=== PATIENT | male | born 1955 | race Caucasian/White ===

== ENCOUNTER 2017-07-24 23:33 | Inpatient (IN) | payer MEDICARE ==
[~2017-07-24] VITALS: Ht 182.9 cm; Wt 145.5 kg
[~2017-07-24 23:33] MED LIST: AMBI10TA PO; AMLO5TAB2 PO; ATEN50TA PO; CYCL1TAB29 PO; ROSU10 PO; SERT-132 PO; WARF-23 PO
[2017-07-24 23:38] VITALS: BP 207/123; PULSE 91; RESP 22; TEMP 99.7; O2SAT 98
[2017-07-24] MEDS ORDERED: GLIP5 PO (23:58)
[2017-07-24] MEDS ORDERED: WARF-21 PO (23:58)
[2017-07-24] MEDS ORDERED: POLY17S PO (23:58)
[2017-07-24] MEDS ORDERED: METF500T PO (23:58)
[2017-07-24] MEDS ORDERED: OMEP40CA2 PO (23:58)
[2017-07-24] MEDS ORDERED: ALBU0.08 NEB (23:58)
[2017-07-24] MEDS ORDERED: LISI10TA3 PO (23:58)
[2017-07-24] MEDS ORDERED: FURO20TA PO (23:58)
[2017-07-24] MEDS ORDERED: CETI10CH CHEW (23:58)
[2017-07-24] MEDS ORDERED: ATOR20TA15 PO (23:58)
[2017-07-24] MEDS ORDERED: WARF-23 PO (23:58)
[2017-07-25] VITALS (8 sets, daily range): BP systolic 126–175; BP diastolic 61–85; PULSE 65–91; RESP 17–20; TEMP 96.3–100.7; O2SAT 93–98
--- NOTE | 2017-07-25 00:19 | PD ---
HPI Chief Complaint: Complaint Time Seen by Provider: 23:43 Travel History International Travel<30 days: No Contact w/Intl Traveler<30days: No History of Present Illness HPI The patient is a 61 year old male who presents to the [facility] emergency department with a history of noticing blood in his urine prior to arrival. He has a history of kidney stones. He has not required any treatment in the past as they "were not bothering him". He has been seen by [facility] in the past. Today when he began to have the hematuria he also developed a lower abdominal pain in the suprapubic area. He has some constipation however he has used a stool softener today and moved his bowels in small amount. His last bowel movement that was normal was two days ago. He began to have left flank pain yesterday. He had a fever of 99.7 earlier today. He reports that he's had dysuria with urinary frequency and urgency since yesterday. On review of systems, he denies having any worsening cough or congestion, neck pain, chest pain, vomiting, diarrhea, or new neurologic symptoms. He has chronic dyspnea on exertion that is been present for the last 6 months. His pcp is Dr. Aguiar. 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 Hx Anticoagulant Therapy: Yes (Warfarin) Arthritis: Yes Anxiety: Yes Cardiovascular Problems: Yes (HTN ) High Cholesterol: Yes Cerebrovascular Accident: Yes (5 Strokes, 3 TIA, Aneurysm ) Coronary Artery Disease: Yes Diabetes: Yes (Metformin) Patient Takes Glucophage: Yes Diminished Hearing: No Hypertension: Yes Immunizations Current: Yes Tetanus Vaccination: Unknown Influenza Vaccination: Yes Past Surgical History Narrative Surgical The patient's past surgical history is significant for intracranial hemorrhage at 20 years of age status post aneurysmal clipping, arthroscopic left knee surgery. Social History Alcohol Use: No Tobacco Use: No (quit at 40 years of age) Substance Use: No Allergies-Medications (Allergen,Severity, Reaction): Coded Allergies: erythromycin base (Unverified Allergy, Intermediate, 07/17/17) purple blotches Reported Meds & Prescriptions Reported Meds & Active Scripts Active Reported Cetirizine (Cetirizine HCl) 10 Mg Chew 10 Mg CHEW DAILY Albuterol Neb (Albuterol Sulfate) 2.5 Mg/3 Ml Neb 2.5 Mg NEB Q6HR NEB PRN Polyethylene Glycol 3350 Powder (Polyethylene Glycol) 17 Gram Pow 17 Gm PO DAILY Omeprazole 40 Mg Cap 40 Mg PO DAILY Metformin (Metformin HCl) 500 Mg Tab 500 Mg PO BIDPC With meals Lisinopril 10 Mg Tab 10 Mg PO DAILY Glucotrol (Glipizide) 5 Mg Tab 5 Mg PO DAILY Take 30 minutes before a meal Furosemide 20 Mg Tab 20 Mg PO DAILY Atorvastatin (Atorvastatin Calcium) 20 Mg Tab 20 Mg PO HS Warfarin 5 Mg Tab 5 Mg PO ZTUWETHFRSA Warfarin 7.5 Mg Tab 7.5 Mg PO ZSUMO Amlodipine (Amlodipine Besylate) 5 Mg Tab 5 Mg PO DAILY Flexeril (Cyclobenzaprine HCl) 10 Mg Tab 10 Mg PO TID PRN Sertraline (Sertraline HCl) 50 Mg Tab 50 Mg PO DAILY Atenolol 50 Mg Tab 50 Mg PO DAILY Ambien (Zolpidem Tartrate) 10 Mg Tab 10 Mg PO HS PRN Review of Systems Except as stated in HPI: all other systems reviewed are Neg General / Constitutional: No: Fever Eyes: No: Visual changes HENT: No: Headaches Cardiovascular: Positive: Dyspnea on exertion (chronic for the last 6 months), No: Chest Pain or Discomfort Respiratory: No: Shortness of Breath Gastrointestinal: Positive: Nausea, Abdominal Pain, Changes in Bowel Habits, No : Vomiting, Diarrhea, Hematemesis, Hematochezia, Indigestion, Loss of Appetite Genitourinary: Positive: Urgency, Frequency, Dysuria, Hematuria, Flank Pain Musculoskeletal: No: Pain Skin: No Rash Neurologic: No: Weakness, Focal Abnormalities, Change in Mentation, Slurred Speech, Sensory Disturbance Psychiatric: No: Depression Endocrine: No: Polydipsia Hematologic/Lymphatic: No: Easy Bruising Physical Exam Narrative General: The patient is a well-developed well-nourished male in no acute distress. Head and Neck exam: Head is normocephalic atraumatic. Eyes: EOMI, pupils are equal round and reactive to light. Nose: Midline septum with pink mucous membranes Mouth: Dentition unremarkable. Moist mucus membranes. Posterior oropharynx is not erythematous. No tonsillar hypertrophy. Uvula midline. Airway patent. Neck: No palpable lymphadenopathy. No nuchal rigidity. No thyromegaly. Cardiovascular: Regular rate and rhythm without murmurs, gallops, or rubs. Lungs: Clear to auscultation bilaterally. No wheezes, rhonchi, or rales. Abdomen: Soft, with tenderness on palpation of the suprapubic area and left lower quadrant of the abdomen, no other tenderness on palpation of the other quadrants of the abdomen. No guarding, rebound, or rigidity. Normal bowel sounds are audible. No tenderness on palpation of McBurney's point. Extremities: No clubbing, cyanosis. The patient has chronic lymphedema of bilateral lower extremities worse on the left leg compared to the right. 2+ pulses in all 4 extremities. Back: No spinous process tenderness to palpation. Left CVA tenderness to palpation. Neurologic Exam: The patient is at his baseline for his usual neurologic exam he has a history of left upper extremity paralysis, left lower extremity paresis related to a prior stroke. The Patient is alert and oriented. The patient has no evidence of facial asymmetry. Skin Exam: No rash noted. Intact skin that is warm and dry. Data Data Last Documented VS Vital Signs Date Time Temp Pulse Resp B/P (MAP) Pulse Ox O2 Delivery O2 Flow Rate FiO2 07/25/17 02:48 98.5 91 18 153/67 (95) 98 Room Air Orders Orders Electrocardiogram (07/25/17 00:09) Complete Blood Count With Diff (07/25/17 00:09) Comprehensive Metabolic Panel (07/25/17 00:09) Creatine Kinase (Cpk) (07/25/17 00:09) Ckmb (Isoenzyme) Profile (07/25/17 00:09) Troponin I (07/25/17 00:09) B-Type Natriuretic Peptide (07/25/17 00:09) Prothrombin Time / Inr (Pt) (07/25/17 00:09) Act Partial Throm Time (Ptt) (07/25/17 00:09) Lipase (07/25/17 00:09) Urinalysis - C+S If Indicated (07/25/17 00:09) Magnesium (Mg) (07/25/17 00:09) Chest, Single Ap (07/25/17 00:09) Iv Access Insert/Monitor (07/25/17 00:09) Ecg Monitoring (07/25/17 00:09) Oximetry (07/25/17 00:09) Urine Culture (07/25/17 00:00) CKMB (07/25/17 00:15) CKMB% (07/25/17 00:15) Ct Abd/Pel W/O Iv Contrast (07/25/17 02:01) Lactic Acid Sepsis Protocol (07/25/17 02:20) Blood Culture (07/25/17 02:20) Piperacil-Tazo 3.375 Gm Premix (Zosyn 3. (07/25/17 02:30) Vancomycin Inj (Vancomycin Inj) (07/25/17 02:30) Admit Order (Ed Use Only) (07/25/17 03:20) Labs Laboratory Tests Test 07/25/17 00:00 07/25/17 00:15 07/25/17 02:40 Urine Color DARK-RED Urine Turbidity CLOUDY Urine pH 6.5 Urine Specific [place] 1.021 Urine Protein 300 mg/dL Urine Glucose (UA) TRACE mg/dL Urine Ketones 10 mg/dL Urine Occult Blood LARGE Urine Nitrite NEG Urine Bilirubin NEG Urine Urobilinogen LESS THAN 2.0 MG/DL Urine Leukocyte Esterase LARGE Urine RBC /hpf Urine WBC /hpf Urine Amorphous Sediment RARE Microscopic Urinalysis Comment CULTURE INDICATED White Blood Count 13.0 TH/MM3 Red Blood Count 5.07 MIL/MM3 Hemoglobin 14.2 GM/DL Hematocrit 43.6 % Mean Corpuscular Volume 86.0 FL Mean Corpuscular Hemoglobin 28.0 PG Mean Corpuscular Hemoglobin Concent 32.6 % Red Cell Distribution Width 15.6 % Platelet Count 251 TH/MM3 Mean Platelet Volume 8.5 FL Neutrophils (%) (Auto) 80.6 % Lymphocytes (%) (Auto) 9.3 % Monocytes (%) (Auto) 9.4 % Eosinophils (%) (Auto) 0.4 % Basophils (%) (Auto) 0.3 % Neutrophils # (Auto) 10.5 TH/MM3 Lymphocytes # (Auto) 1.2 TH/MM3 Monocytes # (Auto) 1.2 TH/MM3 Eosinophils # (Auto) 0.1 TH/MM3 Basophils # (Auto) 0.0 TH/MM3 CBC Comment DIFF FINAL Differential Comment Prothrombin Time 14.0 SEC Prothromb Time International Ratio 1.3 RATIO Activated Partial Thromboplast Time 33.6 SEC Blood Urea Nitrogen 12 MG/DL Creatinine 0.97 MG/DL Random Glucose 159 MG/DL Total Protein 7.5 GM/DL Albumin 2.9 GM/DL Calcium Level 8.3 MG/DL Magnesium Level 1.6 MG/DL Alkaline Phosphatase 68 U/L Aspartate Amino Transf (AST/SGOT) 16 U/L Alanine Aminotransferase (ALT/SGPT) 28 U/L Total Bilirubin 0.4 MG/DL Sodium Level 138 MEQ/L Potassium Level 3.4 MEQ/L Chloride Level 102 MEQ/L Carbon Dioxide Level 27.7 MEQ/L Anion Gap 8 MEQ/L Estimat Glomerular Filtration Rate 79 ML/MIN Total Creatine Kinase 207 U/L Creatine Kinase MB 1.7 NG/ML Troponin I LESS THAN 0.02 NG/ML B-Type Natriuretic Peptide 28 PG/ML Lipase 113 U/L Lactic Acid Level 1.2 mmol/L MDM Medical Decision Making Medical Screen Exam Complete: Yes Emergency Medical Condition: Yes Medical Record Reviewed: Yes Interpretation(s) Last Impressions Abdomen/Pelvis CT 07/25/17200 Signed Impressions: Service Date/Time: Tuesday, July 25, 2017 02:10 - CONCLUSION: 1. Stranding of fat around the bladder and prostate. Differential diagnosis includes cystitis and prostatitis. 2. Numerous left renal calculi as above measuring up to about 1 cm at multiple locations in the left renal pelvis. Mild dilatation of the left ureter without evidence for ureteral or bladder calculus. No right-sided renal calculi. 3. Fatty liver. Alex Mullen MD Chest X-Ray 07/25/17 0009 Signed Impressions: Service Date/Time: Tuesday, July 25, 2017 00:12 - CONCLUSION: No acute disease. No significant change has occurred. Alex Mullen MD Differential Diagnosis Diverticulitis, versus kidney stone, versus hemorrhagic cystitis Narrative Course During the course of the patients emergency department visit, the patients history, examination, and differential diagnosis were reviewed with the patient. The patient had IV access obtained and blood work sent for analysis. The patients laboratory studies were reviewed and remarkable for a white count of 13,000, hemoglobin 14.2, platelets 251 with 80.6 neutrophils, 9.4 monocytes, CMP is remarkable for potassium 3.4, glucose 159, calcium 8.3, CPK 207, troponin I less than 0.02, BNP 28, lipase 113. PT 14, PTT 33.6, urinalysis reveals 300 protein, 10 ketones, large occult blood, large leukocyte Estrace, innumerable RBCs and WBCs, Culture indicated. Radiology studies were reviewed and remarkable for a chest x-ray that shows no acute abnormality. A CT scan of the abdomen and pelvis that shows stranding around the prostate and bladder suspicious for prostatitis. Numerous left renal calculi are noted measuring up to 1 cm at multiple locations of the left renal pelvis, mild dilatation of the left ureter without evidence of ureteral or bladder calculi, no right sided renal calculi, fatty liver is noted. The patient had blood cultures ordered. A lactic acid was ordered. The patient was started on Zosyn 3.375 g IV, vancomycin 1 g IV. Given the patient' s peripheral edema and concern about the possibility of fluid overload, the patient was judiciously hydrated. The patient was given normal saline 1 L IV fluid bolus after his BMP came back within normal limits. The patient was given morphine for pain, Zofran for nausea. The patient will be admitted to the hospital for continued evaluation and treatment. The patients results were discussed with the patient, including the plan of care. I explained that further testing and/ or monitoring is indicated based on the patients history, examination, and/ or laboratory findings. Therefore, I recommended admission for additional evaluation. The patient expressed understanding and was agreeable with this plan. The patient was admitted to the hospital in guarded condition and sent to a bed under the care of the [facility] service. Sepsis Criteria SIRS Criteria (2 or more): Heart rate over 90, WBC > 82328, < 4000 or > 10% bands Sepsis Criteria (SIRS+source): Infect source susp/known Criteria Outcome: Meets SIRS criteria, Meets sepsis criteria Physician Communication Physician Communication The patient's case is discussed with Dr. Tucker who did agree to admit the patient for further evaluation and treatment at this time. Diagnosis Primary Impression: Hemorrhagic cystitis Additional Impressions: Prostatitis Qualified Codes: N41.0 - Acute prostatitis Kidney stones Admitting Information Admitting Physician Requests: Admit Linda Diez MD Jul 25, 2017 00:19
--- NOTE | 2017-07-25 00:52 | RADRPT ---
EXAM DATE/TIME: 07/25/2017 00:12 [facility] COMPARISON: CHEST SINGLE AP, May 07, 2017, 22:11. INDICATIONS : Shortness of breath. MEDICAL HISTORY : Deep venous thrombosis. Hypercholesterolemia. Hypertension. Cerebrovascular accident. Diabetes SURGICAL HISTORY : None. ENCOUNTER: Initial ACUITY: 1 day PAIN SCORE: 0/10 LOCATION: Bilateral chest FINDINGS: A single view of the chest demonstrates the lungs to be symmetrically aerated without evidence of mas s, infiltrate or effusion. The cardiomediastinal contours are unremarkable. Osseous structures are intact. CONCLUSION: No acute disease. No significant change has occurred. Alex Mullen MD on July 25, 2017 at 0:50 Board Certified Radiologist. This report was verified electronically.
[2017-07-25 01:01] LABS: BLOOD, URINE LARGE (NEG); COMMENT (UR) CULTURE INDICATED; CULTURE IF INDICATED CULTURE INDICATED; GLUCOSE,URINE TRACE mg/dL (NEG); KETONE, URINE 10 mg/dL (NEG); NITRITE,URINE NEG (NEG); PH, URINE 6.5 (5.0-8.5)
[2017-07-25 01:01] LABS: AUTOMATED NEUTROPHIL # 10.5 TH/MM3 (1.8-7.7); BASOPHIL % 0.3 % (0.0-2.0); EOSINOPHIL # 0.1 TH/MM3 (0-0.4); EOSINOPHIL % 0.4 % (0.0-4.0); HEMATOCRIT 43.6 % (39.0-51.0); HEMO FLAGS DIFF FINAL; LYMPH % 9.3 % (9.0-44.0); LYMPHOCYTE # 1.2 TH/MM3 (1.0-4.8); MEAN CORPUSCULAR HGB CONC 32.6 % (32.0-36.0); MONO % 9.4 % (0.0-8.0); NEUT % 80.6 % (16.0-70.0); PLATELET COUNT 251 TH/MM3 (150-450); RED BLOOD COUNT 5.07 MIL/MM3 (4.50-5.90); RED CELL DISTRIBUTION WIDTH 15.6 % (11.6-17.2)
[2017-07-25 01:02] LABS: URINE COLOR DARK-RED (YELLW/STRAW)
[2017-07-25 01:03] LABS: ANION GAP 8 MEQ/L (5-15); AST (GOT) 16 U/L (15-37); BICARBONATE 27.7 MEQ/L (21.0-32.0); BLOOD UREA NITROGEN 12 MG/DL (7-18); CHLORIDE 102 MEQ/L (98-107); GLOMERULAR FILTRATION RATE 79 ML/MIN (>89); MAGNESIUM 1.6 MG/DL (1.5-2.5); POTASSIUM 3.4 MEQ/L (3.5-5.1); SODIUM (NA) 138 MEQ/L (136-145)
[2017-07-25 01:08] LABS: ALKALINE PHOSPHATASE 68 U/L (45-117); ALT (GPT) 28 U/L (12-78); CREATINE KINASE 207 U/L (39-308); TOTAL BILIRUBIN ADULT 0.4 MG/DL (0.2-1.0)
[2017-07-25 01:11] LABS: APTT (PATIENT) 33.6 SEC (24.3-30.1); INTERNATIONAL NORMALIZED RATIO 1.3 RATIO
[2017-07-25 01:20] LABS: CKMB 1.7 NG/ML (0.5-3.6)
[2017-07-25] MEDS ORDERED: PIPERACIL-TAZO 3.375 GM PREMIX 50 ML IV ONE (02:30)
[2017-07-25] MEDS ORDERED: VANCOMYCIN INJ 1,000 MG in SODIUM CHLOR 0.9% 250 ML INJ 250 ML IV ONE (02:30)
--- NOTE | 2017-07-25 02:40 | RADRPT ---
EXAM DATE/TIME: 07/25/2017 02:10 [facility] COMPARISON: No previous studies available for comparison. INDICATIONS : Blood in urine and suprapubic pain, evaluate for renal stone ORAL CONTRAST: No oral contrast ingested. RADIATION DOSE: 33.80 CTDIvol (mGy) ; Patient body habitus MEDICAL HISTORY : Cerebrovascular disease. Hypertension. Renal calculi.diabetes SURGICAL HISTORY : None. ENCOUNTER: Initial ACUITY: 1 day PAIN SCALE: 4/10 LOCATION: suprapubic TECHNIQUE: Volumetric scanning of the abdomen and pelvis was performed. Using automated exposure control and ad justment of the mA and/or kV according to patient size, radiation dose was kept as low as reasonably achievable to obtain optimal diagnostic quality images. DICOM format image data is available electro nically for review and comparison. FINDINGS: The visualized lung bases are clear. Fatty liver. The acute findings in the spleen, adrenals, right k idney or pancreas. No calcified gallstones There are numerous left-sided renal calculi. The 3 largest calculi on the left lateral measure about 10 mm in diameter is seen in the upper left renal pelvis and the third in the lower left renal pelvis . Numerous additional subcentimeter calculi present in the left kidney. The left ureter is minimally dilated but no ureteral calculi are seen. There is stranding of the fat around the bladder suggesting a cystitis. No bladder calculi. There is also some stranding around the prostate. No pelvic mass or free fluid. CONCLUSION: 1. Stranding of fat around the bladder and prostate. Differential diagnosis includes cystitis and pro statitis. 2. Numerous left renal calculi as above measuring up to about 1 cm at multiple locations in the left renal pelvis. Mild dilatation of the left ureter without evidence for ureteral or bladder calculus. N o right-sided renal calculi. 3. Fatty liver. Alex Mullen MD on July 25, 2017 at 2:33 Board Certified Radiologist. This report was verified electronically.
[2017-07-25] MEDS ORDERED: SODIUM CHLOR 0.9% 1000 ML INJ 1,000 ML IV SCH (03:29)
[2017-07-25] MEDS ORDERED: NALOXONE HCL 0.4 MG/ML AMP IV PUSH PRN (03:30)
[2017-07-25] MEDS ORDERED: SODIUM CHLORIDE 0.9% FLUSH 10 ML FLUSH IV FLUSH PRN (03:30)
[2017-07-25] MEDS ORDERED: SODIUM CHLOR 0.9% 1000 ML INJ 1,000 ML IV ONE (03:30)
[2017-07-25] MEDS ORDERED: MORPHINE SULFATE 4 MG/ML INJ IV PUSH ONE (03:45)
[2017-07-25] MEDS ORDERED: ONDANSETRON HCL 4 MG/2 ML VIAL IV PUSH ONE (03:45)
--- NOTE | 2017-07-25 03:46 | HHI.HP ---
HPI Service [facility] Primary Care Physician Unknown Admission Diagnosis hemorrhagic cystitis, prostatitis, sepsis criteria Diagnoses: Travel History International Travel<30 Days: No Contact w/Intl Traveler <30 Da: No History of Present Illness History from patient, ER physician communication, and review of medical records. Patient reported that for the past 2 days, he has been having this pain in the lower abdomen and pain on urination with burning sensation. He stated he was also having some pain in his lower back. He then noted that those blood in his urine today. Reports of low-grade fever of 99.7 at home. Denies any nausea or vomiting. Reports he has been having night sweats but this has been going on for a long time. He was also having shortness of breath but again this has been going on for the past several months. He did report of some constipation today. Next and apart from that, denies any black color stool or red color stool. Patient is on Coumadin at home. His INR is 1.3 today. Patient reports a prior history of CVA with residual left-sided weakness. He states that his left lower extremity has been swelling chronically as well. He reports he has had ultrasounds of his left lower extremity a few months ago and there was no evidence of DVT. He does not particularly remember whether he had any CT scan for the chest or echocardiogram to evaluate for his shortness of breath. Apart from the above, patient denies any recent fever/nausea/vomiting/diarrhea. Denies any blood in his stool. Noted blood in his urine. Denies any chest pain/palpitations. Did have shortness of breath. No syncopal episodes. No dizziness. Review of Systems Except as stated in HPI: all other systems reviewed are Neg Past Family Social History Past Medical History htn dm cva- residual left sided weakness copd- used to smoke for about 30yrs, quit 15yrs ago sleep apnea- on cpap at night brain aneurysm clipping when he was 20yrs old Past Surgical History brain aneurysm clipping when he was 20yrs old- NOT mri compatible left knee arthroscopic sx Allergies: Coded Allergies: erythromycin base (Unverified Allergy, Intermediate, 07/17/17) purple blotches Family History mother- copd father- lung problems as well, copd, skin cancers, hx of stroke in family dm in father's side of family Social History used to smoke for 30yrs, quit 15yrs ago no etoh or drugs Physical Exam Vital Signs Vital Signs Date Time Temp Pulse Resp B/P (MAP) Pulse Ox O2 Delivery O2 Flow Rate FiO2 07/25/17 02:48 98.5 91 18 153/67 (95) 98 Room Air 07/25/17 00:36 90 20 175/71 (105) 98 Room Air 07/24/17 23:38 99.7 91 22 207/123 (151) 98 Physical Exam GENERAL: This is a well-nourished, well-developed patient, in no apparent distress. Obese gentleman SKIN: No rashes, ecchymoses or lesions. Cool and dry. HEAD: Atraumatic. Normocephalic. No temporal or scalp tenderness. EYES: No scleral icterus. No injection or drainage. ENT: Nose without bleeding, purulent drainage or septal hematoma.Airway patent. NECK: Trachea midline. No JVD CARDIOVASCULAR: Regular rate and rhythm without murmurs, gallops, or rubs. RESPIRATORY: Clear to auscultation. Breath sounds equal bilaterally. No wheezes , rales, or rhonchi. GASTROINTESTINAL: Abdomen soft, non-tender, nondistended. No guarding. MUSCULOSKELETAL: Extremities without clubbing, cyanosis. No calf tenderness. Left lower extremity significantly bigger than the right. NEUROLOGICAL: Awake and alert. Facial asymmetry with left facial droop. Left upper extremity 0 out of 5. Left lower extremity about 3 out of 5. Normal speech. Laboratory Laboratory Tests Test 07/25/17 00:00 07/25/17 00:15 07/25/17 02:40 Urine Color DARK-RED Urine Turbidity CLOUDY Urine pH 6.5 Urine Specific Bentley 1.021 Urine Protein 300 Urine Glucose (UA) TRACE Urine Ketones 10 Urine Occult Blood LARGE Urine Nitrite NEG Urine Bilirubin NEG Urine Urobilinogen LESS THAN 2.0 Urine Leukocyte Esterase LARGE Urine RBC Urine WBC Urine Amorphous Sediment RARE Microscopic Urinalysis Comment CULTURE INDICATED White Blood Count 13.0 Red Blood Count 5.07 Hemoglobin 14.2 Hematocrit 43.6 Mean Corpuscular Volume 86.0 Mean Corpuscular Hemoglobin 28.0 Mean Corpuscular Hemoglobin Concent 32.6 Red Cell Distribution Width 15.6 Platelet Count 251 Mean Platelet Volume 8.5 Neutrophils (%) (Auto) 80.6 Lymphocytes (%) (Auto) 9.3 Monocytes (%) (Auto) 9.4 Eosinophils (%) (Auto) 0.4 Basophils (%) (Auto) 0.3 Neutrophils # (Auto) 10.5 Lymphocytes # (Auto) 1.2 Monocytes # (Auto) 1.2 Eosinophils # (Auto) 0.1 Basophils # (Auto) 0.0 CBC Comment DIFF FINAL Differential Comment Prothrombin Time 14.0 Prothromb Time International Ratio 1.3 Activated Partial Thromboplast Time 33.6 Blood Urea Nitrogen 12 Creatinine 0.97 Random Glucose 159 Total Protein 7.5 Albumin 2.9 Calcium Level 8.3 Magnesium Level 1.6 Alkaline Phosphatase 68 Aspartate Amino Transf (AST/SGOT) 16 Alanine Aminotransferase (ALT/SGPT) 28 Total Bilirubin 0.4 Sodium Level 138 Potassium Level 3.4 Chloride Level 102 Carbon Dioxide Level 27.7 Anion Gap 8 Estimat Glomerular Filtration Rate 79 Total Creatine Kinase 207 Creatine Kinase MB 1.7 Troponin I LESS THAN 0.02 B-Type Natriuretic Peptide 28 Lipase 113 Lactic Acid Level 1.2 Date/Time Source Procedure Growth Status 07/25/17 02:45 Blood Peripheral Aerobic Blood Culture Pending Received 07/25/17 02:45 Blood Peripheral Anaerobic Blood Culture Pending Received 07/25/17 00:00 Urine Random Urine Urine Culture Pending Worksheet Result Diagram: 07/25/17 0015 07/25/17 0015 Imaging Last 48 hours Impressions Abdomen/Pelvis CT 07/25/17 0201 Signed Impressions: Service Date/Time: Tuesday, July 25, 2017 02:10 - CONCLUSION: 1. Stranding of fat around the bladder and prostate. Differential diagnosis includes cystitis and prostatitis. 2. Numerous left renal calculi as above measuring up to about 1 cm at multiple locations in the left renal pelvis. Mild dilatation of the left ureter without evidence for ureteral or bladder calculus. No right-sided renal calculi. 3. Fatty liver. Alex Mullen MD Chest X-Ray 07/25/17 0009 Signed Impressions: Service Date/Time: Tuesday, July 25, 2017 00:12 - CONCLUSION: No acute disease. No significant change has occurred. Alex Mullen MD Caprini VTE Risk Assessment Caprini VTE Risk Assessment: Mod/High Risk (score >= 2) Caprini Risk Assessment Model Point Value = 1 Point Value = 2 Point Value = 3 Point Value = 5 Age 41-60 Minor surgery BMI > 25 kg/m2 Swollen legs Varicose veins or History of unexplained or recurrent spontaneous Oral contraceptives or hormone replacement Sepsis (< 1 month) Serious lung disease, including pneumonia (< 1 month) Abnormal pulmonary function Acute myocardial infarction Congestive heart failure (< 1 month) History of inflammatory bowel disease Medical patient at bed rest Age 61-74 Arthroscopic surgery Major open surgery (> 45 min) Laparoscopic surgery (> 45 min) Malignancy Confined to bed (> 72 hours) Immobilizing plaster cast Central venous access Age >= 75 History of VTE Family history of VTE Factor V Leiden Prothrombin [id number] Lupus anticoagulant Anticardiolipin antibodies Elevated serum homocysteine Heparin-induced thrombocytopenia Other congenital or acquired thrombophilia Stroke (< 1 month) Elective arthroplasty Hip, pelvis, or leg fracture Acute spinal cord injury (< 1 month) Prophylaxis Regimen Total Risk Factor Score Risk Level Prophylaxis Regimen 0-1 Low Early ambulation 2 Moderate Order ONE of the following: *Sequential Compression Device (SCD) *Heparin 5000 units SQ BID 3-4 Higher Order ONE of the following medications: *Heparin 5000 units SQ TID *Enoxaparin/Lovenox 40 mg SQ daily (WT < 150 kg, CrCl > 30 mL/min) *Enoxaparin/Lovenox 30 mg SQ daily (WT < 150 kg, CrCl > 10-29 mL/min) *Enoxaparin/Lovenox 30 mg SQ BID (WT < 150 kg, CrCl > 30 mL/min) AND/OR *Sequential Compression Device (SCD) 5 or more Highest Order ONE of the following medications: *Heparin 5000 units SQ TID (Preferred with Epidurals) *Enoxaparin/Lovenox 40 mg SQ daily (WT < 150 kg, CrCl > 30 mL/min) *Enoxaparin/Lovenox 30 mg SQ daily (WT < 150 kg, CrCl > 10-29 mL/min) *Enoxaparin/Lovenox 30 mg SQ BID (WT < 150 kg, CrCl > 30 mL/min) AND *Sequential Compression Device (SCD) Assessment and Plan Assessment and Plan Impression: Hemorrhagic cystitis Hematuria Non-obstructive renal stones Leukocytosis with left shift Mild hypokalemia Plan: At present, patient has a condom catheter. he has been draining urine with hematuria. So far, there is no evidence of blood clot causing obstructive uropathy. We'll need to carefully monitor for this. If needed, patient would need a Ferguson catheter with frequent flushing/possibly CBI. Would also consult urology for possible further intervention. Hold Coumadin and other anticoagulants. Repeat hemoglobin hematocrit in a.m. Patient was given vancomycin and Zosyn in ER for cystitis. For now, I would use ciprofloxacin 400 mg IV every 12 hours. We'll monitor for clinical improvement. We'll follow urine culture results. Replace potassium 40 mEq by mouth. Hold long-acting insulin and oral hypoglycemics. We'll monitor fingersticks and cover with sliding scale coverage. C Pap at night at home setting. Nebs when necessary. DVT prophylaxis- with SCD if ultrasound of the lower extremities is negative for acute DVT. Will obtain ultrasound of the lower extremities. At present, patient cannot be anticoagulated due to hematuria. Discussed Condition With Patient's, ER physician, patient's nurse Physician Certification 2 Midnight Certification Type: Admission for Inpatient Services Order for Inpatient Services The services are ordered in accordance with Medicare regulations or non- Medicare payer requirements, as applicable. In the case of services not specified as inpatient-only, they are appropriately provided as inpatient services in accordance with the 2-midnight benchmark. Estimated LOS (days): 3 days is the estimated time the patient will need to remain in the hospital, assuming treatment plan goals are met and no additional complications. Post-Hospital Plan: Home Sudhakar Tucker MD Jul 25, 2017 03:46
[2017-07-25] MEDS ORDERED: ONDANSETRON HCL 4 MG/2 ML VIAL IV PUSH PRN (06:00)
[2017-07-25] MEDS: MORPHINE SULFATE 4 MG/ML INJ IV PUSH PRN ×5 (07:12→18:39)
[2017-07-25] MEDS ORDERED: RESP: ALBUTEROL 2.5 MG/3 ML NEB (PRN) NEB (07:15)
[2017-07-25] MEDS ORDERED: CETIRIZINE HCL 10 MG TAB PO PRN (07:15)
[2017-07-25] MEDS ORDERED: GLUCAGON 1 MG/ML VIAL OTHER PRN (07:30)
[2017-07-25] MEDS ORDERED: DEXTROSE 50% IN WATER 50 ML VIAL(D50) IV PUSH PRN (07:30)
[2017-07-25] MEDS ORDERED: POTASSIUM CHLORIDE 20 MEQ CONTROLLED RELEASE TAB PO ONE (07:30)
--- NOTE | 2017-07-25 08:44 | MB ---
cc: PATRICK ARIZMENDI MD DATE OF CONSULTATION: 07/25/2017 REASON FOR CONSULTATION 1. Prostatitis. 2. Left renal calculi. HISTORY OF PRESENT ILLNESS The patient is a 61-year-old male with known history of kidney stones who is followed by my partner, Dr. Bennett in [place], presented to the ER last night with a 2-day history of dysuria and pain is his lower abdomen. He has also been having some pain in his lower back for several days. Later yesterday afternoon he then also noticed bright red blood in his urine. He had low grade fever at home of 99.7, but denies any nausea, vomiting at that time. The patient came to the ER where he was found to have an elevated white count of 13,000 with large blood and leukocyte esterase in his urinalysis. His CT abdomen and pelvis without contrast was performed which showed two large stones in his left kidney which he has known about and had been followed, but no evidence of any hydronephrosis. Urology was consulted for these findings. He states he has had blood in his urine off and on for over the past year. These are the only kidney stones he has had. He denies any family history of kidney stones or any family history of prostate cancer. He does take Coumadin for a history of a stroke which left him with some residual left-sided weakness. His weight has been stable. Denies any new or unusual bone or back pain. REVIEW OF SYSTEMS See HPI. All other systems reviewed otherwise are negative. PAST MEDICAL HISTORY 1. Diabetes. 2. Hypertension. 3. History of CVA. 4. COPD. 5. Sleep apnea. 6. Brain aneurysm. PAST SURGICAL HISTORY He has had a left knee arthroscopic surgery and clipping of a brain aneurysm when he was 20 years old. ALLERGIES ERYTHROMYCIN. FAMILY HISTORY Denies urolithiasis or genitourinary malignancy. SOCIAL HISTORY History of tobacco use but quit 15 years ago. Denies alcohol or illicit drugs. Lives at a nursing facility. PHYSICAL EXAMINATION VITAL SIGNS: 99.3, pulse 89, respiratory rate 17, BP 139/61, sating 97% on room air. GENERAL: He is alert and oriented x3. No apparent distress. Pleasant and cooperative and appears his stated age. HEAD: Normocephalic, atraumatic. EYES: No scleral icterus. Extraocular muscles intact. SKIN: No visible ulcers or rashes. Mucous membranes pink and moist. LUNGS: Clear to auscultation bilaterally. No wheezes, rales or rhonchi. HEART: Regular rhythm. No murmurs, gallops, rubs. ABDOMEN: Soft, obese, nontender, nondistended. Positive bowel sounds. GENITOURINARY: His penis is circumcised. Testes descended bilaterally, normal size and consistency. RECTAL: Exam deferred at this time. EXTREMITIES: Nontender. 1+ edema. No cyanosis or tenderness. PSYCHE: Normal affect. NEUROLOGICAL: Cranial nerves II-XII intact. Strength 4/5 in the left upper and lower extremity, 5/5 in the right upper and lower extremity. NECK: No JVD. Trachea is midline. LABORATORY DATA White count 13,000, hemoglobin 14.2, hematocrit 43.6, platelet count 251, sodium 138, potassium 3.4, chloride 102, bicarb 27.7, creatinine 0.97, BUN 12. Urine was cloudy with large blood, large leukocyte esterase. Urine culture currently pending. IMAGING STUDIES CT abdomen and pelvis images were reviewed, agree with radiologist's report. The patient has non-obstructing 1 cm size left renal calculi. ASSESSMENT The patient is a 61-year-old male with history of left sided renal calculi, who presents with lower abdominal pain, dysuria and hematuria for the last two days, consistent with prostatitis. PLAN 1. Recommend continuing IV antibiotics for now until cultures are final and then treat for a total of 4 weeks for his prostatitis. 2. Conservative management for his stones at this time as they do not appear to be causing obstruction. However, do recommend that once his infection is adequately treated, he has the stones treated on an outpatient basis as they are likely the source of his urinary tract infection and blood in his urine and he can follow up with my partner Dr. Bennett in [place] as he is already followed there. Thank you for this consultation. Patrick Arizmendi MD EMF/EMILEE /7:47 AM /7:55 AM
[2017-07-25] MEDS: FUROSEMIDE 20 MG TAB PO SCH (08:52)
[2017-07-25] MEDS: PANTOPRAZOLE SOD 40 MG DELAYED RELEASE TAB PO SCH (08:52)
[2017-07-25] MEDS: ATENOLOL 50 MG TAB PO SCH (08:52)
[2017-07-25] MEDS: CYCLOBENZAPRINE HCL 10 MG TAB PO PRN ×2 (08:53→17:50)
[2017-07-25] MEDS: SERTRALINE HCL 50 MG TAB PO SCH (08:53)
[2017-07-25] MEDS: amLODIPine BESYLATE 5 MG TAB PO SCH (08:53)
[2017-07-25] MEDS: LISINOPRIL 10 MG TAB PO SCH (08:53)
[2017-07-25] MEDS: CIPROFLOXACIN 400 MG PREMIX 200 ML IV SCH ×2 (08:54→23:04)
[2017-07-25] MEDS: INSULIN ASPART SUPPLEMENTAL SCALE SQ SCH ×4 (08:54→23:18)
[2017-07-25] MEDS: SODIUM CHLORIDE 0.9% FLUSH 10 ML FLUSH IV FLUSH SCH ×2 (08:55→23:05)
--- NOTE | 2017-07-25 09:29 | RADRPT ---
EXAM DATE/TIME: 07/25/2017 07:50 [facility] COMPARISON: No previous studies available for comparison. INDICATIONS : Bilateral leg pain and edema. MEDICAL HISTORY : Hypercholesterolemia. Renal calculi. Arthritis. Strokes x5. TIA x3. Brain aneurysm. DVT. HTN. Coronar y artery disease. Hematuria. Diabets. Anxiety. Anticoagulant therapy, Warfarin. SURGICAL HISTORY : Brain clips placed for aneurysm. Arthroscopic surgery, left knee. ENCOUNTER: Subsequent ACUITY: >1 year PAIN SCORE: 5/10 LOCATION: Bilateral leg. TECHNIQUE: Venous ultrasound of the left and right leg was performed from the inguinal ligament to the proximal calf. Real-time, color Doppler and spectral tracing, compression and augmentation techniques were us ed. FINDINGS: RIGHT LEG: There is normal compressibility of the deep venous system from the inguinal region to the proximal ca lf. No echogenic clot is seen in the lumen of the common femoral, femoral, popliteal, and posterior tibial veins. There is a normal response of the venous system to proximal and distal augmentation an d respiration. LEFT LEG: There is normal compressibility of the deep venous system from the inguinal region to the proximal ca lf. No echogenic clot is seen in the lumen of the common femoral, femoral, popliteal, and posterior tibial veins. There is a normal response of the venous system to proximal and distal augmentation an d respiration. CONCLUSION: 1. No evidence of deep venous thrombosis. Shan Ruano MD on July 25, 2017 at 9:27 Board Certified Radiologist. This report was verified electronically.
--- NOTE | 2017-07-25 12:27 | ECHRPT ---
Indication: Shortness of breath CONCLUSIONS The left ventricular systolic function is normal with an estimated ejection fraction in the range of 55-60%. Normal left ventricular size. Mild concentric left ventricular hypertrophy. No regional wall motion abnormalities are present. Diffuse calcification of the aortic valve. There is trace tricuspid valve regurgitation. The estimated pulmonary arterial pressure is 36.6 mmHg. Trivial pulmonary valve regurgitation. The inferior vena cava was not well visualized. BP: 126 / 77 HR: 88 Rhythm: Sinus MEASUREMENTS (Male / Female) Normal Values Technical Quality:Fair 2D ECHO LV Diastolic Diameter PLAX 4.8 cm 4.2 - 5.9 / 3.9 - 5.3 cm LV Systolic Diameter PLAX 3.2 cm IVS Diastolic Thickness 1.3 cm 0.6 - 1.0 / 0.6 - 0.9 cm LVPW Diastolic Thickness 1.3 cm 0.6 - 1.0 / 0.6 - 0.9 cm LV Relative Wall Thickness 0.5 RV Internal Dim ED PLAX 2.9 cm LVOT Diameter 2.0 cm LA Systolic Diameter LX 4.0 cm 3.0 - 4.0 / 2.7 - 3.8 cm LV Ejection Fraction MOD 4C 61.8 % LV Cardiac Index MOD 4C 3226.7 cm/minm LV Ejection Fraction 4C AL 62.4 % LV Cardiac Index 4C AL 3367.7 cm/minm M-MODE Aortic Root Diameter MM 3.0 cm LA Systolic Diameter MM 4.0 cm LA Ao Ratio MM 1.3 AV Cusp Separation MM 1.5 cm DOPPLER AV Peak Velocity 233.0 cm/s AV Peak Gradient 21.7 mmHg AV Mean Gradient 9.5 mmHg AV Velocity Time Integral 34.0 cm LVOT Peak Velocity 154.0 cm/s LVOT Peak Gradient 9.5 mmHg LVOT Velocity Time Integral 26.1 cm LVOT Cardiac Index 2593.9 cm/minm AV Area Cont Eq vti 2.4 cm AV Area Cont Eq pk 2.1 cm MV Area PHT 3.6 cm Mitral E Point Velocity 112.0 cm/s Mitral A Point Velocity 102.0 cm/s Mitral E to A Ratio 1.1 LV E' Lateral Velocity 12.7 cm/s Mitral E to LV E' Lateral Ratio 8.8 LV E' Septal Velocity 9.6 cm/s Mitral E to LV E' Septal Ratio 11.7 TR Peak Velocity 258.0 cm/s TR Peak Gradient 26.6 mmHg Right Atrial Pressure 10.0 mmHg Pulmonary Artery Systolic Pressu 36.6 mmHg Right Ventricular Systolic Press 36.6 mmHg PV Peak Velocity 118.0 cm/s PV Peak Gradient 5.6 mmHg FINDINGS LEFT VENTRICLE The left ventricular systolic function is normal with an estimated ejection fraction in the range of 55-60%. Normal left ventricular size. Mild concentric left ventricular hypertrophy. No regional wall motion abnormalities are present. RIGHT VENTRICLE Normal right ventricular size and systolic function. LEFT ATRIUM The left atrial size is normal. RIGHT ATRIUM The right atrial size is normal. ATRIAL SEPTUM Normal atrial septal thickness without atrial level shunting by limited color doppler interrogation. AORTA The aortic root and proximal ascending aorta are normal in size on limited imaging. MITRAL VALVE Structurally normal mitral valve. No mitral valve stenosis or regurgitation. AORTIC VALVE Diffuse calcification of the aortic valve. TRICUSPID VALVE There is trace tricuspid valve regurgitation. The estimated pulmonary arterial pressure is 36.6 mmHg. PULMONARY VALVE Trivial pulmonary valve regurgitation. VESSELS The inferior vena cava was not well visualized. PERICARDIUM No pericardial effusion. Jacek Serrano MD, FACC (Electronically Signed) Final Date:25 July 2017 12:25
--- NOTE | 2017-07-25 14:51 | EKG ---
Date Performed: 07/24/2017 Time Performed: 23:43:14 PTAGE: 61 years EKG: Sinus rhythm NORMAL ECG NO PREVIOUS TRACING DOCTOR: Elver Peters Interpretating Date/Time 07/25/2017 14:50:52
--- NOTE | 2017-07-25 16:03 | HHI.PR ---
Subjective Remarks Follow-up hematuria, leukocytosis. The patient reports subjective fever. He also reports headache. Reports episodes of chest pain and dyspnea. No chest pain currently. Does feel a little short of breath, which he attributes to anxiety. He states that he "almost had a panic attack". Objective Vitals Vital Signs Date Time Temp Pulse Resp B/P (MAP) Pulse Ox O2 Delivery O2 Flow Rate FiO2 07/25/17 15:44 99.0 07/25/17 14:54 100.7 79 20 152/85 (107) 93 07/25/17 11:53 99.2 81 20 146/74 (98) 96 07/25/17 08:00 98.3 88 20 126/77 (93) 94 07/25/17 05:15 99.3 89 17 139/61 (87) 97 07/25/17 04:30 07/25/17 02:48 98.5 91 18 153/67 (95) 98 Room Air 07/25/17 00:36 90 20 175/71 (105) 98 Room Air 07/24/17 23:38 99.7 91 22 207/123 (151) 98 I/O 07/24/17 07/24/17 07/24/17 07/25/17 07/25/17 07/25/17 07:00 15:00 23:00 07:00 15:00 23:00 Intake Total 300 ml Output Total 750 ml Balance 300 ml -750 ml Intake IV Total 300 ml Output Urine Total 750 ml Result Diagram: 07/25/17 0015 07/25/17 0015 Imaging Last Impressions Abdomen/Pelvis CT 07/25/17 0201 Signed Impressions: Service Date/Time: Tuesday, July 25, 2017 02:10 - CONCLUSION: 1. Stranding of fat around the bladder and prostate. Differential diagnosis includes cystitis and prostatitis. 2. Numerous left renal calculi as above measuring up to about 1 cm at multiple locations in the left renal pelvis. Mild dilatation of the left ureter without evidence for ureteral or bladder calculus. No right-sided renal calculi. 3. Fatty liver. Alex Mullen MD Chest X-Ray 07/25/17 0009 Signed Impressions: Service Date/Time: Tuesday, July 25, 2017 00:12 - CONCLUSION: No acute disease. No significant change has occurred. Alex Mullen MD Lower Extremity Ultrasound 07/25/17 0000 Signed Impressions: Service Date/Time: Tuesday, July 25, 2017 07:50 - CONCLUSION: 1. No evidence of deep venous thrombosis. Shan Ruano MD Objective Remarks General: Obese male in no acute distress. Sitting up in a chair. Heart: Regular rate and rhythm. No murmur. Lungs: Clear to auscultation bilaterally. No wheezes, rales, or rhonchi. Breathing is nonlabored. Abdomen: Soft, nontender, nondistended. Psych: Alert and oriented. Procedures None Urinary Catheter: No Vascular Central Line Catheter: No A/P Problem List: (1) Prostatitis ICD Code: N41.9 - Inflammatory disease of prostate, unspecified Status: Acute Assessment and Plan 1. Prostatitis: Appreciate urology recommendations. Urine is becoming more clear. Coumadin on hold. Monitor H&H. Continue ciprofloxacin IV. 2. Hypokalemia: Monitor labs. Given supplementation of potassium. 3. Diabetes mellitus: Monitor Accu-Cheks and cover with sliding scale insulin. 4. Sleep apnea: CPAP at night. 5. DVT prophylaxis: SCDs. Anticoagulation on hold secondary to hematuria. Problem Qualifiers (1) Prostatitis: Qualified Codes: N41.0 - Acute prostatitis Elbert Wyman MD Jul 25, 2017 16:03
[2017-07-25] MEDS ORDERED: ACETAMINOPHEN 500 MG CPLT PO PRN (18:30)
[2017-07-25] MEDS: ATORVASTATIN 20 MG TAB PO SCH (23:04)
[2017-07-25] MEDS: ZOLPIDEM TARTRATE 10 MG TAB PO PRN (23:18)
[2017-07-26] VITALS: BP 124/71; PULSE 65; RESP 18; TEMP 96.3; O2SAT 95
[2017-07-26] MEDS: MORPHINE SULFATE 4 MG/ML INJ IV PUSH PRN ×2 (01:39→09:44)
[2017-07-26 04:00] VITALS: BP 148/73; PULSE 76; RESP 17; TEMP 96.8; O2SAT 92
[2017-07-26] MEDS: CYCLOBENZAPRINE HCL 10 MG TAB PO PRN (04:41)
[2017-07-26 07:41] LABS: AUTOMATED NEUTROPHIL # 5.1 TH/MM3 (1.8-7.7); BASOPHIL % 0.6 % (0.0-2.0); EOSINOPHIL # 0.2 TH/MM3 (0-0.4); EOSINOPHIL % 2.3 % (0.0-4.0); HEMATOCRIT 39.8 % (39.0-51.0); HEMO FLAGS DIFF FINAL; LYMPH % 19.6 % (9.0-44.0); LYMPHOCYTE # 1.6 TH/MM3 (1.0-4.8); MEAN CELL VOLUME 86.8 FL (80.0-100.0); MEAN CORPUSCULAR HEMOGLOBIN 28.7 PG (27.0-34.0); NEUT % 62.5 % (16.0-70.0); PLATELET COUNT 232 TH/MM3 (150-450); RED BLOOD COUNT 4.58 MIL/MM3 (4.50-5.90); RED CELL DISTRIBUTION WIDTH 15.4 % (11.6-17.2); WHITE BLOOD COUNT 8.2 TH/MM3 (4.0-11.0)
[2017-07-26 07:50] VITALS: BP 134/72; PULSE 78; RESP 20; TEMP 96.9; O2SAT 94
[2017-07-26] MEDS: INSULIN ASPART SUPPLEMENTAL SCALE SQ SCH ×4 (07:57→22:03)
[2017-07-26] MEDS: CIPROFLOXACIN 400 MG PREMIX 200 ML IV SCH ×2 (07:59→20:19)
[2017-07-26] MEDS: LISINOPRIL 10 MG TAB PO SCH (07:59)
[2017-07-26] MEDS: ATENOLOL 50 MG TAB PO SCH (07:59)
[2017-07-26] MEDS: FUROSEMIDE 20 MG TAB PO SCH (07:59)
[2017-07-26] MEDS: PANTOPRAZOLE SOD 40 MG DELAYED RELEASE TAB PO SCH (07:59)
[2017-07-26] MEDS: SERTRALINE HCL 50 MG TAB PO SCH (07:59)
[2017-07-26] MEDS: amLODIPine BESYLATE 5 MG TAB PO SCH (08:02)
[2017-07-26 08:07] LABS: BICARBONATE 30.1 MEQ/L (21.0-32.0); POTASSIUM 3.2 MEQ/L (3.5-5.1)
[2017-07-26] MEDS: SODIUM CHLORIDE 0.9% FLUSH 10 ML FLUSH IV FLUSH SCH ×2 (08:09→20:20)
[2017-07-26] MEDS ORDERED: INFLUENZA VIRUS VACCINE (QUADRIVALENT) 0.5 ML SYR IM ONE (10:00)
[2017-07-26] MEDS ORDERED: LACTULOSE SYRUP 20 GM/30 ML CUP PO PRN (11:15)
[2017-07-26] MEDS ORDERED: SENNOSIDES 8.6 MG TAB PO PRN (11:15)
[2017-07-26] MEDS ORDERED: MAGNESIUM HYDROXIDE SUSP 30 ML CUP PO PRN (11:15)
[2017-07-26] MEDS ORDERED: ACETAMINOPHEN 325 MG TAB PO PRN ×2 (11:15)
[2017-07-26] MEDS ORDERED: BISACODYL 10 MG SUPP RECTAL PRN (11:15)
--- NOTE | 2017-07-26 11:22 | HHI.PR ---
Subjective Remarks Complaining of bilateral flank pain with radiation towards bilateral back and suprapubic area. Tolerating diet. He reported he was short of breath on admission but has no recurrent problems. Never had diagnosis COPD. Does not require oxygen at home. Hasn't been on inhalers or nebulizers. Has a history of left-sided hemiparesis due to stroke back in 2010. Does ambulate with a walker. Would like me to look into home health care agency that doesn't offer lymphedema therapy. He does have chronic left lower extremity edema and lymphedema Objective Vitals Vital Signs Date Time Temp Pulse Resp B/P (MAP) Pulse Ox O2 Delivery O2 Flow Rate FiO2 07/26/17 07:50 96.9 78 20 134/72 (92) 94 07/26/17 04:00 96.8 76 17 148/73 (98) 92 07/26/17 00:00 96.3 65 18 124/71 (88) 95 07/25/17 20:00 96.3 65 18 141/79 (99) 95 07/25/17 19:40 18 07/25/17 15:44 99.0 07/25/17 14:54 100.7 79 20 152/85 (107) 93 07/25/17 11:53 99.2 81 20 146/74 (98) 96 I/O 07/25/17 07/25/17 07/25/17 07/26/17 07/26/17 07/26/17 07:00 15:00 23:00 07:00 15:00 23:00 Intake Total 300 ml 960 ml Output Total 750 ml 1350 ml 600 ml Balance 300 ml -750 ml -390 ml -600 ml Intake Oral 960 ml IV Total 300 ml Output Urine Total 750 ml 1350 ml 600 ml Result Diagram: 07/26/1730 07/26/17 0630 Objective Remarks GENERAL: This is a well-nourished, obese, well-developed patient, in no apparent distress. CARDIOVASCULAR: Regular rate and rhythm RESPIRATORY: Clear to auscultation. Breath sounds equal bilaterally. No wheezes , rales, or rhonchi. GASTROINTESTINAL: Abdomen soft, obese, mild supra pubic tenderness with mild bilateral flank tenderness with no rebound guarding. Normal active bowel sounds MUSCULOSKELETAL: Extremities with left lower extremity swelling, 3+. NEURO: Alert & Oriented x4 to person, place, time, situation. Left-sided edema paresis with weakness of 3 out of 5 5 in strength this is chronic. Procedures None A/P Problem List: (1) Prostatitis ICD Code: N41.9 - Inflammatory disease of prostate, unspecified Status: Acute Assessment and Plan Sepsis -present on admission with presenting symptoms of tachycardia and leukocytosis with source of prostatitis currently on IV Cipro and awaiting final urine cultures and blood cultures. Urologist Dr. brandt has reviewed the case and CT and recommends after final cultures for outpatient follow-up. [place] patient's nephrolithiasis is nonobstructive at this time and will continue to clinically monitor. Acute prostatitis- appreciate urologist Recommendation. His hematuria has improved currently on condom catheter. His Coumadin currently on hold secondary to his presentation of hematuria. Continue antibiotics. Start oral pain medication in addition to his IV morphine for when necessary breakthrough pain. Hypokalemia- replete. Diabetes mellitus type 2 -overall adequate glycemic control and continue to cover with sliding scale insulin. History of left sided hemiparesis due to stroke back in December 2009. Continues to be proactive and inventory with a walker. Currently staying at a assisted living facility with home health care [facility]. Would like referral to a home health care company that do offer physical therapy lymphedema therapy. Constipation- initiate stool softeners. Discontinue telemetry- patient has been stable since admission has no active cardiac history or issues. DVT prophylaxis SCDs, currently Coumadin is on hold due to history hematuria. Discharge Planning Discharge planning back to [facility] with home health care if patient remains stable and pain improved overnight. Problem Qualifiers (1) Prostatitis: Qualified Codes: N41.0 - Acute prostatitis Karina Durbin MD Jul 26, 2017 11:22
[2017-07-26 11:30] VITALS: BP 138/67; PULSE 75; RESP 20; TEMP 96.7; O2SAT 93
[2017-07-26] MEDS ORDERED: POTASSIUM CHLORIDE 20 MEQ CONTROLLED RELEASE TAB PO ONE (12:00)
[2017-07-26] MEDS: DOCUSATE SODIUM 50 MG/SENNA 8.6 MG TAB PO SCH ×2 (12:44→20:18)
[2017-07-26] MEDS: ACETAMINOPHEN/HYDROcodone 325 MG/5 MG TAB PO PRN ×3 (12:50→20:19)
[2017-07-26 15:50] VITALS: BP 141/79; PULSE 83; RESP 20; TEMP 97.4; O2SAT 93
[2017-07-26 20:00] VITALS: BP 134/82; PULSE 77; RESP 22; TEMP 97.5; O2SAT 96
[2017-07-26] MEDS: ATORVASTATIN 20 MG TAB PO SCH (20:18)
[2017-07-26] MEDS: ZOLPIDEM TARTRATE 10 MG TAB PO PRN (20:19)
[2017-07-26] MEDS ORDERED: diphenhydrAMINE HCL 25 MG CAP PO ONE (23:45)
[2017-07-27] VITALS: BP 149/81; PULSE 84; RESP 22; TEMP 97; O2SAT 98
[2017-07-27] MEDS: ACETAMINOPHEN/HYDROcodone 325 MG/5 MG TAB PO PRN ×2 (02:47→09:47)
[2017-07-27 04:00] VITALS: BP 146/69; PULSE 82; RESP 22; TEMP 97.2; O2SAT 94
[2017-07-27] MEDS: MORPHINE SULFATE 4 MG/ML INJ IV PUSH PRN (05:55)
[2017-07-27 08:00] VITALS: BP 162/93; PULSE 80; RESP 16; TEMP 97.4; O2SAT 95
[2017-07-27 08:25] VITALS: O2SAT 92
[2017-07-27] MEDS: SERTRALINE HCL 50 MG TAB PO SCH (09:00)
[2017-07-27] MEDS: ATENOLOL 50 MG TAB PO SCH (09:47)
[2017-07-27] MEDS: PANTOPRAZOLE SOD 40 MG DELAYED RELEASE TAB PO SCH (09:47)
[2017-07-27] MEDS: amLODIPine BESYLATE 5 MG TAB PO SCH (09:47)
[2017-07-27] MEDS: CYCLOBENZAPRINE HCL 10 MG TAB PO PRN (09:47)
[2017-07-27] MEDS: FUROSEMIDE 20 MG TAB PO SCH (09:47)
[2017-07-27] MEDS: DOCUSATE SODIUM 50 MG/SENNA 8.6 MG TAB PO SCH (09:47)
[2017-07-27] MEDS: LISINOPRIL 10 MG TAB PO SCH (09:47)
[2017-07-27] MEDS: INSULIN ASPART SUPPLEMENTAL SCALE SQ SCH ×2 (09:49→14:22)
[2017-07-27] MEDS: CIPROFLOXACIN 400 MG PREMIX 200 ML IV SCH (09:49)
[2017-07-27] MEDS: SODIUM CHLORIDE 0.9% FLUSH 10 ML FLUSH IV FLUSH SCH (09:50)
--- NOTE | 2017-07-27 10:16 | HHI.PR ---
Subjective Remarks Patient states no shortness of breath. Doing well. No fevers or chills. Wants to go home. Objective Vitals Vital Signs Date Time Temp Pulse Resp B/P (MAP) Pulse Ox O2 Delivery O2 Flow Rate FiO2 07/27/17 08:25 92 21 07/27/17 08:00 97.4 80 16 162/93 (116) 95 07/27/17 06:05 19 07/27/17 04:00 97.2 82 22 146/69 (94) 94 07/27/17 04:00 19 07/27/17 00:00 97.0 84 22 149/81 (103) 98 07/26/17 20:00 97.5 77 22 134/82 (99) 96 07/26/17 15:50 97.4 83 20 141/79 (99) 93 07/26/17 11:30 96.7 75 20 138/67 (90) 93 I/O 07/26/17 07/26/17 07/26/17 07/27/17 07/27/17 07/27/17 07:00 15:00 23:00 07:00 15:00 23:00 Intake Total 960 ml 1000 ml Output Total 600 ml 1000 ml 100 ml Balance -600 ml -40 ml 900 ml Intake Oral 960 ml 1000 ml Output Urine Total 600 ml 1000 ml 100 ml # Bowel Movements 0 Result Diagram: 07/26/17 0630 07/26/17 0630 Other Results Microbiology Date/Time Source Procedure Growth Status 07/25/17 02:45 Blood Peripheral Aerobic Blood Culture - Preliminary NO GROWTH IN 1 DAY Resulted 07/25/17 02:45 Blood Peripheral Anaerobic Blood Culture - Preliminary NO GROWTH IN 1 DAY Resulted 07/25/17 00:00 Urine Random Urine Urine Culture - Final Serratia Marcescens Complete Imaging Last Impressions Abdomen/Pelvis CT 07/25/17 0201 Signed Impressions: Service Date/Time: Tuesday, July 25, 2017 02:10 - CONCLUSION: 1. Stranding of fat around the bladder and prostate. Differential diagnosis includes cystitis and prostatitis. 2. Numerous left renal calculi as above measuring up to about 1 cm at multiple locations in the left renal pelvis. Mild dilatation of the left ureter without evidence for ureteral or bladder calculus. No right-sided renal calculi. 3. Fatty liver. Alex Mullen MD Chest X-Ray 07/25/17 0009 Signed Impressions: Service Date/Time: Tuesday, July 25, 2017 00:12 - CONCLUSION: No acute disease. No significant change has occurred. Alex Mullen MD Lower Extremity Ultrasound 07/25/17 0000 Signed Impressions: Service Date/Time: Tuesday, July 25, 2017 07:50 - CONCLUSION: 1. No evidence of deep venous thrombosis. Shan Ruano MD Objective Remarks GENERAL: This is a well-nourished, obese, well-developed patient, in no apparent distress. CARDIOVASCULAR: Regular rate and rhythm RESPIRATORY: Clear to auscultation. Breath sounds equal bilaterally. No wheezes , rales, or rhonchi. GASTROINTESTINAL: Abdomen soft, obese, mild supra pubic tenderness with mild bilateral flank tenderness with no rebound guarding. Normal active bowel sounds MUSCULOSKELETAL: Extremities with left lower extremity swelling, 3+. NEURO: Alert & Oriented x4 to person, place, time, situation. Left-sided edema paresis with weakness of 3 out of 5 5 in strength this is chronic. Procedures None A/P Problem List: (1) Prostatitis ICD Code: N41.9 - Inflammatory disease of prostate, unspecified Status: Acute Assessment and Plan Sepsis with Serratia urinary tract infection and acute prostatitis as source of infection -present on admission with presenting symptoms of tachycardia and leukocytosis with source of prostatitis and Serratia UTI which is sensitive to Cipro, currently on IV Cipro and was switched to by mouth and blood cultures shows no growth to date. Urologist has reviewed the case and recommends for outpatient follow-up. [place] patient's nephrolithiasis is nonobstructive at this time and will continue to clinically monitor. Acute prostatitis- appreciate urologist Recommendation. His hematuria has improved currently on condom catheter. His Coumadin currently on hold secondary to his presentation of hematuria. Continue antibiotics, Cipro. Start oral pain medication in addition to his IV morphine for when necessary breakthrough pain. Hypokalemia- replete. Repeat levels pending Diabetes mellitus type 2 -overall adequate glycemic control and continue to cover with sliding scale insulin. History of left sided hemiparesis due to stroke back in December 2009. Continues to be proactive and inventory with a walker. Currently staying at a assisted living facility with home health care [facility]. Would like referral to a home health care company that do offer physical therapy lymphedema therapy. Constipation- continue stool softeners. DVT prophylaxis SCDs, currently Coumadin is on hold due to history hematuria. Discharge Planning Discharge with home health care Problem Qualifiers (1) Prostatitis: Qualified Codes: N41.0 - Acute prostatitis Karina Durbin MD Jul 27, 2017 10:16
--- NOTE | 2017-07-27 10:21 | HHI.DS ---
Discharge Summary Admission Date Jul 25, 2017 at 03:22 Discharge Date: Jul 27, 2017 Admitting Diagnosis hemorrhagic cystitis, prostatitis, sepsis criteria (1) Sepsis ICD Code: A41.9 - Sepsis, unspecified organism Diagnosis: Principal Status: Resolved (2) Prostatitis ICD Code: N41.9 - Inflammatory disease of prostate, unspecified Diagnosis: Secondary Status: Resolved Procedures None Brief History - From Admission History from patient, ER physician communication, and review of medical records. Patient reported that for the past 2 days, he has been having this pain in the lower abdomen and pain on urination with burning sensation. He stated he was also having some pain in his lower back. He then noted that those blood in his urine today. Reports of low-grade fever of 99.7 at home. Denies any nausea or vomiting. Reports he has been having night sweats but this has been going on for a long time. He was also having shortness of breath but again this has been going on for the past several months. He did report of some constipation today. Next and apart from that, denies any black color stool or red color stool. Patient is on Coumadin at home. His INR is 1.3 today. Patient reports a prior history of CVA with residual left-sided weakness. He states that his left lower extremity has been swelling chronically as well. He reports he has had ultrasounds of his left lower extremity a few months ago and there was no evidence of DVT. He does not particularly remember whether he had any CT scan for the chest or echocardiogram to evaluate for his shortness of breath. Apart from the above, patient denies any recent fever/nausea/vomiting/diarrhea. Denies any blood in his stool. Noted blood in his urine. Denies any chest pain/palpitations. Did have shortness of breath. No syncopal episodes. No dizziness. CBC/BMP: 07/26/17 0630 07/26/17 0630 Significant Findings Laboratory Tests Test 07/25/17 00:00 07/25/17 00:15 07/25/17 02:40 07/26/17 06:30 Urine Color DARK-RED (YELLW/STRAW) Urine Turbidity CLOUDY (CLEAR) Urine Protein 300 mg/dL (NEG-TRACE) Urine Ketones 10 mg/dL (NEG) Urine Occult Blood LARGE (NEG) Urine Leukocyte Esterase LARGE (NEG) White Blood Count 13.0 TH/MM3 (4.0-11.0) Neutrophils (%) (Auto) 80.6 % (16.0-70.0) Monocytes (%) (Auto) 9.4 % (0.0-8.0) 15.0 % (0.0-8.0) Neutrophils # (Auto) 10.5 TH/MM3 (1.8-7.7) Monocytes # (Auto) 1.2 TH/MM3 (0-0.9) 1.2 TH/MM3 (0-0.9) Prothrombin Time 14.0 SEC (9.8-11.6) Activated Partial Thromboplast Time 33.6 SEC (24.3-30.1) Random Glucose 159 MG/DL (74-106) 155 MG/DL (74-106) Albumin 2.9 GM/DL (3.4-5.0) Calcium Level 8.3 MG/DL (8.5-10.1) 8.0 MG/DL (8.5-10.1) Potassium Level 3.4 MEQ/L (3.5-5.1) 3.2 MEQ/L (3.5-5.1) Estimat Glomerular Filtration Rate 79 ML/MIN (>89) Troponin I LESS THAN 0.02 NG/ML Test 07/27/17 08:45 Imaging Last Impressions Abdomen/Pelvis CT 07/25/17 0201 Signed Impressions: Service Date/Time: Tuesday, July 25, 2017 02:10 - CONCLUSION: 1. Stranding of fat around the bladder and prostate. Differential diagnosis includes cystitis and prostatitis. 2. Numerous left renal calculi as above measuring up to about 1 cm at multiple locations in the left renal pelvis. Mild dilatation of the left ureter without evidence for ureteral or bladder calculus. No right-sided renal calculi. 3. Fatty liver. Alex Mullen MD Chest X-Ray 07/25/17 0009 Signed Impressions: Service Date/Time: Tuesday, July 25, 2017 00:12 - CONCLUSION: No acute disease. No significant change has occurred. Alex Mullen MD Lower Extremity Ultrasound 07/25/17 0000 Signed Impressions: Service Date/Time: Tuesday, July 25, 2017 07:50 - CONCLUSION: 1. No evidence of deep venous thrombosis. Shan Ruano MD PE at Discharge GENERAL: This is a well-nourished, obese, well-developed patient, in no apparent distress. CARDIOVASCULAR: Regular rate and rhythm RESPIRATORY: Clear to auscultation. Breath sounds equal bilaterally. No wheezes , rales, or rhonchi. GASTROINTESTINAL: Abdomen soft, obese, mild supra pubic tenderness with mild bilateral flank tenderness with no rebound guarding. Normal active bowel sounds MUSCULOSKELETAL: Extremities with left lower extremity swelling, 3+. NEURO: Alert & Oriented x4 to person, place, time, situation. Left-sided edema paresis with weakness of 3 out of 5 5 in strength this is chronic. Pt update on day of discharge No complaint of chest pain or shortness of breath. Pain control. No abdominal pain. Hospital Course These are the medical issues addressed during this hospitalization: 61-year-old white male with a history of diabetes mellitus type 2 and left- sided paresis due to previous stroke was admitted with Sepsis with findings of Serratia urinary tract infection and acute prostatitis as source of infection. Sepsis was present on admission with presenting symptoms of tachycardia and leukocytosis with source of prostatitis and Serratia UTI which is sensitive to Cipro, and blood cultures shows no growth to date. Urologist has reviewed the case and recommends for outpatient follow-up. [place] patient's nephrolithiasis on CT abdomen is nonobstructive at this time and will continue to clinically monitor. His Coumadin was held during the hospitalization secondary to his presentation of hematuria. His Diabetes mellitus type 2 -overall adequate glycemic control and continue to cover with sliding scale insulin. Pt Condition on Discharge: Good Discharge Disposition: Disch w/ Home Health Serv Discharge Time: <= 30 minutes Discharge Instructions DIET: Follow Instructions for: Heart Healthy Diet Activities you can perform: Regular-No Restrictions Follow up Referrals: PCP Follow-up Urology with Patrick Arciniega MD New Medications: Ciprofloxacin (Cipro) 500 Mg Tab 500 MG PO BID for Infection for 7 Days, #14 TAB 0 Refills Continued Medications: Albuterol Neb (Albuterol Neb) 2.5 Mg/3 Ml Neb 2.5 MG NEB Q6HR NEB PRN for SHORTNESS OF BREATH, #60 NEBULE 0 Refills Amlodipine (Amlodipine) 5 Mg Tab 5 MG PO DAILY for Blood Pressure Management, #30 TAB 0 Refills Atenolol (Atenolol) 50 Mg Tab 50 MG PO DAILY for Blood Pressure Management, #30 TAB 0 Refills Atorvastatin (Atorvastatin) 20 Mg Tab 20 MG PO HS for Cholesterol Management, #30 TAB 0 Refills Cetirizine (Cetirizine) 10 Mg Chew 10 MG CHEW DAILY for Allergies, TAB 0 Refills Cyclobenzaprine (Flexeril) 10 Mg Tab 10 MG PO TID PRN for MUSCLE SPASM, #90 TAB 0 Refills Furosemide (Furosemide) 20 Mg Tab 20 MG PO DAILY, #30 TAB 0 Refills Glipizide (Glucotrol) 5 Mg Tab 5 MG PO DAILY for Blood Sugar Management, #30 TAB 0 Refills Take 30 minutes before a meal Lisinopril (Lisinopril) 10 Mg Tab 10 MG PO DAILY, #30 TAB 0 Refills Metformin (Metformin) 500 Mg Tab 500 MG PO BIDPC for Blood Sugar Management, #60 TAB 0 Refills With meals Omeprazole (Omeprazole) 40 Mg Cap 40 MG PO DAILY, #30 CAP 0 Refills Polyethylene Glycol 3350 Powder (Polyethylene Glycol 3350 Powder) 17 Gram Pow 17 GM PO DAILY for Constipation, #1 BOTTLE 0 Refills Sertraline (Sertraline) 50 Mg Tab 50 MG PO DAILY, #30 TAB 0 Refills Warfarin (Warfarin) 7.5 Mg Tab 7.5 MG PO zSuMo for Blood Clot Prevention, #30 TAB 0 Refills Warfarin (Warfarin) 5 Mg Tab 5 MG PO [id number] for Blood Clot Prevention, #30 TAB 0 Refills Zolpidem (Ambien) 10 Mg Tab 10 MG PO HS PRN for INSOMNIA, TAB 0 Refills Karina Durbin MD Jul 27, 2017 10:21
[2017-07-27] MEDS ORDERED: CIPR-9 PO (10:28)
[2017-07-27 10:33] LABS: POTASSIUM 3.7 MEQ/L (3.5-5.1)
--- NOTE | 2017-07-27 12:29 | HHI.FF ---
Face to Face Verification Diagnosis: (1) Sepsis (2) Prostatitis Physical Therapy Order: Evaluate and Treat Instructions: Lymphedema therapy left lower leg, history of chronic left-sided hemiparesis due to history of a stroke Home Health Nursing Order: Signs/symptoms of disease process I have seen patient Red Jansen on 07/27/17. My clinical findings support the need for the requested home health care services because: Ltd mobility - disease progression Deconditioned w/ increased weakness I certify that my clinical findings support that this patient is homebound because: Unsteady gait/balance Karina Durbin MD Jul 27, 2017 12:29
[2017-07-27] MEDS ORDERED: WHEEMIS3 (12:38)
[2017-07-27 12:43] VITALS: BP 128/75; PULSE 65; RESP 16; TEMP 96.5; O2SAT 95
== END 2017-07-27 16:35 | disposition home or self-care (01) | DRG 872 ==
LOC: NEPE 23:33 → NEDA 07-25 03:22 → HOCA 07-25 04:41
PROVIDERS: ADMIT Family Medicine; ATTEND Family Medicine
DX: A41.9 Sepsis, unspecified organism (principal); I69.354 Hemiplegia and hemiparesis following cerebral infarction affecting left non-dominant side; I10 Essential (primary) hypertension; N41.0 Acute prostatitis; Z68.41 Body mass index [BMI] 40.0-44.9, adult; N39.0 Urinary tract infection, site not specified; N20.0 Calculus of kidney; E78.5 Hyperlipidemia, unspecified; E66.9 Obesity, unspecified; J44.9 Chronic obstructive pulmonary disease, unspecified; E87.6 Hypokalemia; I25.10 Atherosclerotic heart disease of native coronary artery without angina pectoris; K59.00 Constipation, unspecified; G47.30 Sleep apnea, unspecified; G47.00 Insomnia, unspecified; E11.9 Type 2 diabetes mellitus without complications; B96.89 Other specified bacterial agents as the cause of diseases classified elsewhere; F41.0 Panic disorder [episodic paroxysmal anxiety]; Z79.84 Long term (current) use of oral hypoglycemic drugs; Z86.718 Personal history of other venous thrombosis and embolism; Z79.01 Long term (current) use of anticoagulants; Z87.891 Personal history of nicotine dependence
CPT/HCPCS: 71010; 74176; 80048; 80053; 81001; 82550; 82552; 82948; 83605; 83690; 83735; 83880; 84132; 84484; 85025; 85610; 85730; 87040; 87077; 87086; 87186; 93005; 93306; 93970; 94664; 96365; 96368; J0744; J1815; J2270; J2405; J2543; J3370; J7050; J7613

== ENCOUNTER 2017-07-28 08:03 | Emergency (ER) | payer MEDICARE ==
[~2017-07-28] VITALS: Ht 182.9 cm; Wt 147.0 kg
[~2017-07-28 08:03] MED LIST changes: +ALBU0.08 NEB; +ATOR20TA15 PO; +CETI10CH CHEW; +CIPR-9 PO; +FURO20TA PO; +GLIP5 PO; +LISI10TA3 PO; +METF500T PO; +OMEP40CA2 PO; +POLY17S PO; -ROSU10 PO; +WARF-21 PO; +WHEEMIS3
[2017-07-28 08:16] VITALS: BP 155/86; PULSE 68; RESP 18; TEMP 98.2
--- NOTE | 2017-07-28 08:28 | PD ---
HPI . Fall Chief Complaint: Fall Time Seen by Provider: 08:16 Travel History International Travel<30 days: No Contact w/Intl Traveler<30days: No Traveled to known affect area: No History of Present Illness HPI This patient had a trip and fall this morning and struck his head on a piece of furniture which was protruding. No loss of consciousness. No signs or symptoms of head injury such as blurred vision, nausea, altered mental status. He is on warfarin because of a previous embolic stroke. Minimal pain in the occiput. No modifying factors. 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 Ear Surgery: Yes (couple tooth extractions) Social History Alcohol Use: No Tobacco Use: No (quit at 40 years of age) Substance Use: No Allergies-Medications (Allergen,Severity, Reaction): Coded Allergies: erythromycin base (Unverified Allergy, Intermediate, 07/28/17) purple blotches Reported Meds & Prescriptions Reported Meds & Active Scripts Active Wheelchair Elevated Leg (Device) 1 Mis Mis Ea .ROUTE DIRECTED Cipro (Ciprofloxacin HCl) 500 Mg Tab 500 Mg PO BID 7 Days Reported Cetirizine (Cetirizine HCl) 10 Mg Chew 10 Mg CHEW DAILY Albuterol Neb (Albuterol Sulfate) 2.5 Mg/3 Ml Neb 2.5 Mg NEB Q6HR NEB PRN Polyethylene Glycol 3350 Powder (Polyethylene Glycol) 17 Gram Pow 17 Gm PO DAILY Omeprazole 40 Mg Cap 40 Mg PO DAILY Metformin (Metformin HCl) 500 Mg Tab 500 Mg PO BIDPC With meals Lisinopril 10 Mg Tab 10 Mg PO DAILY Glucotrol (Glipizide) 5 Mg Tab 5 Mg PO DAILY Take 30 minutes before a meal Furosemide 20 Mg Tab 20 Mg PO DAILY Atorvastatin (Atorvastatin Calcium) 20 Mg Tab 20 Mg PO HS Warfarin 5 Mg Tab 5 Mg PO ZTUWETHFRSA Warfarin 7.5 Mg Tab 7.5 Mg PO ZSUMO Amlodipine (Amlodipine Besylate) 5 Mg Tab 5 Mg PO DAILY Flexeril (Cyclobenzaprine HCl) 10 Mg Tab 10 Mg PO TID PRN Sertraline (Sertraline HCl) 50 Mg Tab 50 Mg PO DAILY Atenolol 50 Mg Tab 50 Mg PO DAILY Ambien (Zolpidem Tartrate) 10 Mg Tab 10 Mg PO HS PRN Review of Systems Except as stated in HPI: all other systems reviewed are Neg Eyes: No: Blurred Vision HENT: No: Lightheadedness Gastrointestinal: No: Nausea Neurologic: No: Dizziness, Syncope, Change in Mentation Physical Exam Narrative GENERAL: Patient is awake and alert and in no acute distress. SKIN: Intact. No abrasions or lacerations. HEAD: Point tender in the left occiput. No significant confusion. EYES: Pupils are equal. Extraocular movements are intact. ENT: Mucous membranes are pink and moist. NECK: Nontender. Full range of motion without pain. RESPIRATORY: Nonlabored respirations. MUSCULOSKELETAL: Atraumatic. NEUROLOGICAL: Awake and alert and oriented 3. Residual left-sided weakness secondary to a previous stroke. Otherwise, no new focal findings. PSYCHIATRIC: Appropriate mood and affect. Data Data Last Documented VS Vital Signs Date Time Temp Pulse Resp B/P (MAP) Pulse Ox O2 Delivery O2 Flow Rate FiO2 07/28/17 08:16 98.2 68 18 155/86 (109) Orders Orders Ct Brain W/O Iv Contrast(Rout) (07/28/17 08:16) MDM Medical Decision Making Medical Screen Exam Complete: Yes Emergency Medical Condition: Yes Differential Diagnosis My differential diagnosis of head trauma includes but is not limited to scalp contusion, concussion, intracerebral hemorrhage. Narrative Course Patient presents for evaluation of an injury to his head. He is on warfarin. He has no signs or symptoms suggestive of a head injury. CT>>Postsurgical changes of the right cranium and large area of encephalomalacia at the site of prior stroke. No evidence of acute abnormality. Diagnosis Primary Impression: Scalp contusion Qualified Codes: S00.03XA - Contusion of scalp, initial encounter Patient Instructions: General Instructions, Scalp Contusion in Adults (ED) Disposition: 01 DISCHARGE HOME Condition: Stable Aidee Ulrich MD Jul 28, 2017 08:28
--- NOTE | 2017-07-28 08:37 | RADRPT ---
EXAM DATE/TIME: 07/28/2017 08:28 [facility] COMPARISON: No previous studies available for comparison. INDICATIONS : Trauma; fall. RADIATION DOSE: 44.95 CTDIvol (mGy) MEDICAL HISTORY : Stroke. Aneurysm, intracranial. SURGICAL HISTORY : Brain. ENCOUNTER: Initial ACUITY: 1 day PAIN SCALE: 4/10 LOCATION: cranial TECHNIQUE: Multiple contiguous axial images were obtained of the head. Using automated exposure control and adj ustment of the mA and/or kV according to patient size, radiation dose was kept as low as reasonably a chievable to obtain optimal diagnostic quality images. DICOM format image data is available electro nically for review and comparison. FINDINGS: There are right-sided postsurgical changes of the cranium in an aneurysm clip is identified within th e region of the internal carotid artery on the right. There is a large area of encephalomalacia invol ving the right parietal, frontal and to a lesser extent the right temporal lobe. Ventricles are roughly symmetric and are seen to be midline. The poe-white matter demonstrates mindi l differentiation. No evidence of mass effect or midline shift. No evidence of intra-axial or extra-axial fluid collection. No evidence of hemorrhage. No evidence of fracture. The orbits and sinuses are unremarkable. CONCLUSION: Postsurgical changes of the right cranium and large area of encephalomalacia at the site of prior str reji. No evidence of acute abnormality. Jackie Blakely MD on July 28, 2017 at 8:32 Board Certified Radiologist. This report was verified electronically.
[2017-07-28 11:41] VITALS: BP 180/88
== END 2017-07-28 11:50 | disposition home or self-care (01) ==
LOC: NEPC 08:03
DX: S00.03XA Contusion of scalp, initial encounter (principal); M19.90 Unspecified osteoarthritis, unspecified site; F41.9 Anxiety disorder, unspecified; I10 Essential (primary) hypertension; E78.00 Pure hypercholesterolemia, unspecified; I25.10 Atherosclerotic heart disease of native coronary artery without angina pectoris; E11.9 Type 2 diabetes mellitus without complications; W22.03XA Walked into furniture, initial encounter; Z86.73 Personal history of transient ischemic attack (TIA), and cerebral infarction without residual deficits
CPT/HCPCS: 70450; 99284

== ENCOUNTER 2018-10-17 11:44 | Observation (INO) ==
--- NOTE | 2018-10-17 11:57 | ED ---
HPI General Chief Complaint: Respiratory Symptoms Stated Complaint: difficulty breathing/evac Time Seen by Provider: 10/17/18 11:48 History of Present Illness HPI Narrative: Patient is a 63-year-old obese male, was brought to emergency room for dyspnea, he also had episode of mild chest pain. Patient lives in assisted living half-way. Has history of left-sided stroke with residual weakness, patient is barely can ambulate inside his room. He is on Coumadin due to DVT. Most likely has COPD and CHF. Poor historian. He denies fever, chest pain, abdominal pain. Patient was recently treated with Zithromax for bronchitis, with no significant improvement. Patient wants to be checked for pneumonia, he has low productive cough during the day and night. Related Data Home Medications Medication Instructions Recorded Confirmed Robitussin Cough and Cold CF 10 ml PO DAILY PRN 10/17/18 10/17/18 albuterol sulfate 2 puff INHALATION Q4-6H PRN 10/17/18 10/17/18 amlodipine 5 mg PO DAILY 10/17/18 10/17/18 amoxicillin-pot clavulanate 1 tab PO Q12H 10/17/18 10/17/18 [Augmentin] atenolol 50 mg PO BID 10/17/18 10/17/18 atorvastatin 20 mg PO QPM 10/17/18 10/17/18 cyclobenzaprine 10 mg PO HS 10/17/18 10/17/18 furosemide 20 mg PO DAILY 10/17/18 10/17/18 glipizide [Glucotrol] 5 mg PO AC BREAKFAST 10/17/18 10/17/18 glipizide [Glucotrol] 10 mg PO QPM 10/17/18 10/17/18 hydrocodone-acetaminophen 1 tab PO TID PRN 10/17/18 10/17/18 lisinopril 10 mg PO DAILY 10/17/18 10/17/18 omeprazole 40 mg PO DAILY 10/17/18 10/17/18 sertraline 50 mg PO DAILY 10/17/18 10/17/18 tamsulosin 0.4 mg PO DAILY 10/17/18 10/17/18 warfarin 5 mg PO DAILY 10/17/18 10/17/18 zolpidem 10 mg PO HS 10/17/18 10/17/18 Allergies Allergy/AdvReac Type Severity Reaction Status Date / Time erythromycin base Allergy Intermediate Rash, Verified 10/17/18 11:52 Generalized Review of Systems ROS: all other systems reviewed are negative Respiratory Reports chest congestion and Reports cough PMFSH Medical History Medical History Brain aneurysm (Acute) CHF (congestive heart failure) (Acute) COPD (chronic obstructive pulmonary disease) (Acute) Diabetes (Acute) High cholesterol (Acute) Hypertension (Acute) Pulmonary embolism (Acute) Stroke (Acute) Social History Social History Substance History: No History of Abuse Second Hand Smoke Exposure: No Smoking Status: Never smoker Tobacco Type: Cigarettes How Often Do You Have a Drink Containing Alcohol: Never Recent Travel in [facility] within the Last 8 Weeks: No Recent Out of Country Travel within the Last 8 Weeks: No Exam Narrative Exam Narrative: GENERAL: 63-year-old obese male, left-sided residual weakness, and mild respiratory distress. SKIN: Focused skin assessment warm/dry. HEAD: Atraumatic. Normocephalic. EYES: Pupils equal and round. No scleral icterus. No injection or drainage. ENT: No nasal bleeding or discharge. Mucous membranes pink and moist. NECK: Trachea midline. No JVD. CARDIOVASCULAR: Regular rate and rhythm. No murmur appreciated. RESPIRATORY: No accessory muscle use. Mild bilateral rhonchi.. Air movement. GASTROINTESTINAL: Abdomen soft, non-tender, nondistended. Hepatic and splenic margins not palpable. MUSCULOSKELETAL: No obvious deformities. No clubbing. No cyanosis. No edema. NEUROLOGICAL: Awake and alert. No obvious cranial nerve deficits. Motor grossly within normal limits. Normal speech. PSYCHIATRIC: Appropriate mood and affect; insight and judgment normal. Course Initial Documented Vital Signs Temperature 99.2 F 10/17/18 11:47 Pulse Rate 95 H 10/17/18 11:47 Respiratory Rate 20 10/17/18 11:47 Pulse Oximetry 95 10/17/18 11:47 Last Documented Vital Signs Temperature 97.1 F L 10/18/18 00:00 Pulse Rate 82 10/18/18 04:26 Respiratory Rate 18 10/18/18 04:26 Blood Pressure 109/58 L 10/18/18 01:00 Pulse Oximetry 93 L 10/18/18 00:00 Medical Decision Making MDM Narrative Medical decision making narrative: 63-year-old male presents with dyspnea, will be evaluated for upper respiratory infection, pulmonary embolism. Blood work, chest x-ray, PE study ordered. Reevaluation is pending. 1200: Patient feels better after nebulized treatment steroids given. No chest pain in the emergency room, first set of cardiac enzymes is negative, patient has 17 white count elevated, lactic acid is 2.2, no pneumonia noted, check chest CT is negative for pulmonary embolism. Patient is will be placed on observation for chest pain and mild elevation of white count. He was treated with Levaquin today. Case discussed with MADELINE. Medical Screen Exam Complete: Yes Emergency Medical Condition: Yes Differential Diagnosis Differential Diagnosis: Bronchitis versus COPD exacerbation versus CHF exacerbation versus pulmonary embolism versus anxiety. Lab Data Result diagrams: 10/17/18 12:00 10/17/18 12:00 Lab Results 10/17/18 10/17/18 10/17/18 Range/Units 12:00 12:00 12:00 CBC w Diff Auto diff final WBC 17.7 H (4.0-11.0) th/mm3 RBC 5.17 (4.50-5.90) mil/mm3 Hgb 14.6 (13.0-17.0) gm/dL POC Hgb (Calc) Not Reportable Hct 44.9 (39.0-51.0) % POC Hct Not Reportable MCV 86.7 (80.0-100.0) fL MCH 28.3 (27.0-34.0) pg MCHC 32.7 (32.0-36.0) % RDW 13.6 (11.6-17.2) % Plt Count 250 (150-450) th/mm3 MPV 8.5 (7.0-11.0) fL Neut % (Auto) 85.8 H (16.0-70.0) % Lymph % (Auto) 6.8 L (9.0-44.0) % [place] % (Auto) 4.4 (0.0-8.0) % Eos % (Auto) 0.2 (0.0-4.0) % Baso % (Auto) 2.8 H (0.0-2.0) % Neut # (Auto) 15.2 H (1.8-7.7) th/mm3 Lymph # (Auto) 1.2 (1.0-4.8) th/mm3 [place] # (Auto) 0.8 (0.0-0.9) th/mm3 Eos # (Auto) 0.0 (0.0-0.4) th/mm3 Baso # (Auto) 0.5 H (0.0-0.2) th/mm3 WBC Differential . Differential Comment . PT 17.0 H (9.8-11.6) sec INR 1.7 Ratio APTT 32.9 H (23.4-31.7) sec Puncture Site Patient Temperature O2 Saturation (90-100) % ABG pH (7.380-7.420) ABG pCO2 (38-42) mmHg ABG pO2 (61-120) mmHg ABG HCO3 (22-26) mmol/L ABG O2 Content (12.0-20.0) Vol % ABG Base Excess (-2-2) mmol/L ABG Methemoglobin (0-2) % [place] Test Hemoglobin (12.0-16.0) G/DL Carboxyhemoglobin (0-4) % O2 Delivery Device Inspired O2 % Critical Value POC Sodium 137 (137-144) mmol/L Sodium 135 L (136-145) meq/L POC Potassium 3.5 L (3.6-5.0) mmol/L Potassium 3.6 (3.5-5.1) meq/L POC Chloride 97 L (102-111) mmol/L Chloride 101 (98-107) meq/L Carbon Dioxide 26.9 (21.0-32.0) meq/L Anion Gap 7 (5-15) meq/L POC BUN 10 (5-21) mg/dL BUN 11 (7-18) mg/dL Creatinine 1.09 (0.60-1.30) mg/dL POC Creatinine 0.8 (0.6-1.3) mg/dL Estimated GFR 68 L (>89) mL/min POC Glucose 268 H (68-110) mg/dL Random Glucose 260 H (74-106) mg/dL Lactic Acid (0.4-2.0) mmol/L Calcium 7.8 L (8.5-10.1) mg/dL Total Bilirubin 0.5 (0.2-1.0) mg/dL AST 16 (15-37) U/L ALT 25 (12-78) U/L Alkaline Phosphatase 93 (45-117) U/L Troponin Less than 0.05 (0.00-0.40) ng/mL Troponin I Cancelled B-Natriuretic Peptide (0-100) pg/mL Total Protein 7.1 (6.4-8.2) g/dL Albumin 3.1 L (3.4-5.0) g/dL Beta-Hydroxybutyric Acd 0.16 (0.00-0.39) mmol/L Ur Collection Type Urine Color (Yellw/Straw) Urine Clarity (Clear) Urine pH (5.0-8.5) Ur Specific [place] (1.002-1.035) Urine Protein (Neg-Trace) mg/dL Urine Glucose (UA) (Negative) mg/dL Urine Ketones (Negative) mg/dL Urine Occult Blood (Negative) Urine Nitrate (Negative) Urine Bilirubin (Negative) Urine Urobilinogen (Less than 2) mg/dL Ur Leukocyte Esterase (Negative) Urine RBC (0-3) /hpf Ur Squamous Epith Cells (0-5) /hpf Micro UA Comment Ur Microscopic Review Urine Culture Comments 10/17/18 10/17/18 10/17/18 Range/Units 12:00 12:10 12:25 CBC w Diff WBC (4.0-11.0) th/mm3 RBC (4.50-5.90) mil/mm3 Hgb (13.0-17.0) gm/dL POC Hgb (Calc) Hct (39.0-51.0) % POC Hct MCV (80.0-100.0) fL MCH (27.0-34.0) pg MCHC (32.0-36.0) % RDW (11.6-17.2) % Plt Count (150-450) th/mm3 MPV (7.0-11.0) fL Neut % (Auto) (16.0-70.0) % Lymph % (Auto) (9.0-44.0) % [place] % (Auto) (0.0-8.0) % Eos % (Auto) (0.0-4.0) % Baso % (Auto) (0.0-2.0) % Neut # (Auto) (1.8-7.7) th/mm3 Lymph # (Auto) (1.0-4.8) th/mm3 [place] # (Auto) (0.0-0.9) th/mm3 Eos # (Auto) (0.0-0.4) th/mm3 Baso # (Auto) (0.0-0.2) th/mm3 WBC Differential Differential Comment PT (9.8-11.6) sec INR Ratio APTT (23.4-31.7) sec Puncture Site Right radial Patient Temperature 98.6 O2 Saturation 92 (90-100) % ABG pH 7.45 H (7.380-7.420) ABG pCO2 38 (38-42) mmHg ABG pO2 70 (61-120) mmHg ABG HCO3 26 (22-26) mmol/L ABG O2 Content 19.4 (12.0-20.0) Vol % ABG Base Excess 2.0 (-2-2) mmol/L ABG Methemoglobin 1.2 (0-2) % [place] Test Present Hemoglobin 15.0 (12.0-16.0) G/DL Carboxyhemoglobin 1.4 (0-4) % O2 Delivery Device Room air Inspired O2 21 % Critical Value No POC Sodium (137-144) mmol/L Sodium (136-145) meq/L POC Potassium (3.6-5.0) mmol/L Potassium (3.5-5.1) meq/L POC Chloride (102-111) mmol/L Chloride (98-107) meq/L Carbon Dioxide (21.0-32.0) meq/L Anion Gap (5-15) meq/L POC BUN (5-21) mg/dL BUN (7-18) mg/dL Creatinine (0.60-1.30) mg/dL POC Creatinine (0.6-1.3) mg/dL Estimated GFR (>89) mL/min POC Glucose (68-110) mg/dL Random Glucose (74-106) mg/dL Lactic Acid 2.2 H (0.4-2.0) mmol/L Calcium (8.5-10.1) mg/dL Total Bilirubin (0.2-1.0) mg/dL AST (15-37) U/L ALT (12-78) U/L Alkaline Phosphatase (45-117) U/L Troponin (0.00-0.40) ng/mL Troponin I B-Natriuretic Peptide 12 (0-100) pg/mL Total Protein (6.4-8.2) g/dL Albumin (3.4-5.0) g/dL Beta-Hydroxybutyric Acd (0.00-0.39) mmol/L Ur Collection Type Urine Color (Yellw/Straw) Urine Clarity (Clear) Urine pH (5.0-8.5) Ur Specific [place] (1.002-1.035) Urine Protein (Neg-Trace) mg/dL Urine Glucose (UA) (Negative) mg/dL Urine Ketones (Negative) mg/dL Urine Occult Blood (Negative) Urine Nitrate (Negative) Urine Bilirubin (Negative) Urine Urobilinogen (Less than 2) mg/dL Ur Leukocyte Esterase (Negative) Urine RBC (0-3) /hpf Ur Squamous Epith Cells (0-5) /hpf Micro UA Comment Ur Microscopic Review Urine Culture Comments 10/17/18 10/17/18 Range/Units 13:10 14:13 CBC w Diff WBC (4.0-11.0) th/mm3 RBC (4.50-5.90) mil/mm3 Hgb (13.0-17.0) gm/dL POC Hgb (Calc) Hct (39.0-51.0) % POC Hct MCV (80.0-100.0) fL MCH (27.0-34.0) pg MCHC (32.0-36.0) % RDW (11.6-17.2) % Plt Count (150-450) th/mm3 MPV (7.0-11.0) fL Neut % (Auto) (16.0-70.0) % Lymph % (Auto) (9.0-44.0) % [place] % (Auto) (0.0-8.0) % Eos % (Auto) (0.0-4.0) % Baso % (Auto) (0.0-2.0) % Neut # (Auto) (1.8-7.7) th/mm3 Lymph # (Auto) (1.0-4.8) th/mm3 [place] # (Auto) (0.0-0.9) th/mm3 Eos # (Auto) (0.0-0.4) th/mm3 Baso # (Auto) (0.0-0.2) th/mm3 WBC Differential Differential Comment PT (9.8-11.6) sec INR Ratio APTT (23.4-31.7) sec Puncture Site Patient Temperature O2 Saturation (90-100) % ABG pH (7.380-7.420) ABG pCO2 (38-42) mmHg ABG pO2 (61-120) mmHg ABG HCO3 (22-26) mmol/L ABG O2 Content (12.0-20.0) Vol % ABG Base Excess (-2-2) mmol/L ABG Methemoglobin (0-2) % [place] Test Hemoglobin (12.0-16.0) G/DL Carboxyhemoglobin (0-4) % O2 Delivery Device Inspired O2 % Critical Value POC Sodium (137-144) mmol/L Sodium (136-145) meq/L POC Potassium (3.6-5.0) mmol/L Potassium (3.5-5.1) meq/L POC Chloride (102-111) mmol/L Chloride (98-107) meq/L Carbon Dioxide (21.0-32.0) meq/L Anion Gap (5-15) meq/L POC BUN (5-21) mg/dL BUN (7-18) mg/dL Creatinine (0.60-1.30) mg/dL POC Creatinine (0.6-1.3) mg/dL Estimated GFR (>89) mL/min POC Glucose 190 H (68-110) mg/dL Random Glucose (74-106) mg/dL Lactic Acid (0.4-2.0) mmol/L Calcium (8.5-10.1) mg/dL Total Bilirubin (0.2-1.0) mg/dL AST (15-37) U/L ALT (12-78) U/L Alkaline Phosphatase (45-117) U/L Troponin (0.00-0.40) ng/mL Troponin I B-Natriuretic Peptide (0-100) pg/mL Total Protein (6.4-8.2) g/dL Albumin (3.4-5.0) g/dL Beta-Hydroxybutyric Acd (0.00-0.39) mmol/L Ur Collection Type Clean catch Urine Color Yellow (Yellw/Straw) Urine Clarity Clear (Clear) Urine pH 7.0 (5.0-8.5) Ur Specific [place] 1.015 (1.002-1.035) Urine Protein Negative (Neg-Trace) mg/dL Urine Glucose (UA) 250 H (Negative) mg/dL Urine Ketones Negative (Negative) mg/dL Urine Occult Blood Trace (Negative) Urine Nitrate Negative (Negative) Urine Bilirubin Negative (Negative) Urine Urobilinogen 0.2 (Less than 2) mg/dL Ur Leukocyte Esterase Negative (Negative) Urine RBC 4-15 H (0-3) /hpf Ur Squamous Epith Cells 0-5 (0-5) /hpf Micro UA Comment Culture not ind Ur Microscopic Review Microscopic reviewed Urine Culture Comments Culture not ind Imaging Data Radiologist's impression: Chest CTA 10/17/18 11:49 CONCLUSION: This study is negative for pulmonary embolism. Chest X-Ray 10/17/18 11:49 CONCLUSION: No acute cardiopulmonary abnormality is identified. Discharge Plan Discharge Disposition Patient Disposition: ED Admit(ED Internal Use Only) Discharge Condition Condition: Fair Discharge Order Discharge Orders: ED Use Only Admit Order (Routine); Ordered 10/17/18 Ordered By: Segun Hatch Discharge Details Diagnosis: Chest pain in adult, COPD exacerbation Physicians Team ED Provider: Segun Hatch Primary Care Provider: UNKNOWN, Attending Provider: Lula Ramsay Status ED Status: Left Department Discharge Information Discharge Date/Time: 10/17/18 16:31
[2018-10-17 12:14] LABS: Baso # (Auto) 0.5 th/mm3 (0.0-0.2); Baso % (Auto) 2.8 % (0.0-2.0); Eos % (Auto) 0.2 % (0.0-4.0); Hematocrit 44.9 % (39.0-51.0); Hemoglobin 14.6 gm/dL (13.0-17.0); Lymph # (Auto) 1.2 th/mm3 (1.0-4.8); Lymph % (Auto) 6.8 % (9.0-44.0); Mean Corpuscular HGB Conc 32.7 % (32.0-36.0); Mean Corpuscular Hemoglobin 28.3 pg (27.0-34.0); Mean Corpuscular Volume 86.7 fL (80.0-100.0); Mean Platelet Volume 8.5 fL (7.0-11.0); Mono # (Auto) 0.8 th/mm3 (0.0-0.9); Mono % (Auto) 4.4 % (0.0-8.0); Neut # (Auto) 15.2 th/mm3 (1.8-7.7); Neut % (Auto) 85.8 % (16.0-70.0); Platelet Count 250 th/mm3 (150-450); Red Blood Count 5.17 mil/mm3 (4.50-5.90); Red Cell Distribution Width 13.6 % (11.6-17.2); White Blood Count 17.7 th/mm3 (4.0-11.0)
[2018-10-17 12:18] LABS: ABG PCO2 38 mmHg (38-42); ABG PO2 70 mmHg (61-120)
[2018-10-17 12:26] LABS: Activated Partial Thrombo Time 32.9 sec (23.4-31.7); INR 1.7 Ratio
--- NOTE | 2018-10-17 12:31 | XR ---
EXAM DATE: 10/17/2018 12:27 PM EST AGE/SEX: 63 years / Male INDICATIONS: Productive cough and shortness of breath. CLINICAL DATA: This is the patient's initial encounter. Patient reports that signs and symptoms have been present for 1 day and indicates a pain score of 0/10. MEDICAL/SURGICAL HISTORY: None. None. [place] [facility] [place]. . FINDINGS: Portable AP view of the chest demonstrates cardiac silhouette size at the upper limits for normal. EK G lines overlie the patient. No effusion, consolidation, or pneumothorax is identified. Bones and sof t tissues demonstrate no acute abnormality. CONCLUSION: No acute cardiopulmonary abnormality is identified. Electronically signed by: Alfredito Gil MD Board Certified Radiologist 10/17/2018 12:30 PM EST
--- NOTE | 2018-10-17 13:16 | CT ---
EXAM DATE: 10/17/2018 1:10 PM EST AGE/SEX: 63 years / Male INDICATIONS: Dyspnea. CLINICAL DATA: This is the patient's initial encounter. Patient reports that signs and symptoms have been present for 1 day and indicates a pain score of 0/10. MEDICAL/SURGICAL HISTORY: Deep venous thrombosis. Chronic obstructive pulmonary disease. Congesti ve heart failure. Diabetes. Hypertension. Stroke. Pulmonary embolism. None. RADIATION DOSE: 21.57 CTDI (mGy) COMPARISON: No prior exams available for comparison. TECHNIQUE: Volumetric scanning was performed using a multi-row detector CT scanner during bolus infu suhail of 75 ml Omnipaque 350 (iohexol) nonionic water-soluble contrast as a single exam dose. The kenny a was post processed with a variety of visualization algorithms including full volume maximum intensi ty projection and sliding thin slab reformation. Using automated exposure control and adjustment of the mA and/or kV according to patient size, radiation dose was kept as low as reasonably achievable t o obtain optimal diagnostic quality images. DICOM format image data is available electronically for review and comparison. FINDINGS: Pulmonary Arteries: No filling defects are seen in the pulmonary arteries out to the subsegmental ve ssels. The left and right pulmonary arteries are normal in diameter. Lung: No infiltrates seen. Effusion: None. Mediastinum: No evidence of mediastinal or hilar adenopathy. Other: The axilla is unremarkable. CONCLUSION: This study is negative for pulmonary embolism. Electronically signed by: Alfredito Quiroga MD Board Certified Radiologist 10/17/2018 1:15 PM EST
[2018-10-17 13:21] LABS: Bilirubin,Urine Negative (Negative); Clarity,Urine Clear (Clear); Color,Urine Yellow (Yellw/Straw); Glucose,Urine (UA) 250 mg/dL (Negative); Leukocyte Esterase,Urine Negative (Negative); Nitrite,Urine Negative (Negative); Specific Gravity,Urine 1.015 (1.002-1.035); Urobilinogen,Urine 0.2 mg/dL (Less than 2)
[2018-10-17 13:32] LABS: Squamous Epithelial Cell,Urine 0-5 /hpf (0-5)
[2018-10-17 14:17] LABS: Alanine Aminotransferase 25 U/L (12-78); Albumin 3.1 g/dL (3.4-5.0); Anion Gap 7 meq/L (5-15); Aspartate Aminotransferase 16 U/L (15-37); Blood Urea Nitrogen 11 mg/dL (7-18); Calcium 7.8 mg/dL (8.5-10.1); Carbon Dioxide 26.9 meq/L (21.0-32.0); Chloride 101 meq/L (98-107); Glomerular Filtration Rate 68 mL/min (>89); Glucose,Random 260 mg/dL (74-106); Potassium 3.6 meq/L (3.5-5.1); Sodium 135 meq/L (136-145)
[2018-10-17 14:19] LABS: Alkaline Phosphatase 93 U/L (45-117); Total Protein 7.1 g/dL (6.4-8.2)
[2018-10-17 14:38] LABS: Beta Hydroxybutyric Acid 0.16 mmol/L (0.00-0.39)
[2018-10-17] MEDS ORDERED: levoFLOXacin 750 MG Tablet PO ONE (15:02)
[2018-10-17] MEDS ORDERED: Bisacodyl 10 MG Supp RECTAL PRN (16:00)
[2018-10-17] MEDS ORDERED: Acetaminophen 325 MG Tablet PO PRN (16:00)
[2018-10-17] MEDS ORDERED: Non-Formulary Drug (Hydrocodone-Acetaminophen [Hydrocodone-Acetaminophen] 1 TAB) PO PRN (18:27)
[2018-10-17] MEDS ORDERED: [UNRECOGNIZED DRUG - OTHER] PO PRN (18:27)
[2018-10-17] MEDS ORDERED: guaiFENesin/Dextromethorphan 200 MG/20 MG 10 ML UDC PO PRN (18:29)
--- NOTE | 2018-10-17 19:15 | P.HPIM ---
History of Present Illness Primary Care Physician: UNKNOWN History of Present Illness: 63 yo m with h/o COPD,DVT, previous strokes,with residual left sided weakness who presented with c/o cough and shortness of breath. Cough started about 2 weeks ago was productive of yellowish green sputum, associated with SOB and wheezing.He had intermittent fever/chills. 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 At the time he went to his doctor, he was diagnosed with bronchitis, given Zpac. His symptoms did not improve after a week and he was prescribed augmentin, and mucinex with no improvement. He also reports some nasal congestion. No joint or muscle pains. No change in bowel or micturition habits. ROS is negative. On presentation to ER, VSS, temp 99.2, labs with leucocytosis of 17.7 with 85% neutrophilia,lactic acid 2.2, mildly elevated glucose.CXR and CTA negative. blood cultures were drawn. Patient received NEBS,Lasix,Tramadol and Levofloxacin. Review of Systems Review of Systems: all other systems reviewed are negative [facility] Medical History Medical History Brain aneurysm (Acute) CHF (congestive heart failure) (Acute) COPD (chronic obstructive pulmonary disease) (Acute) Diabetes (Acute) High cholesterol (Acute) Hypertension (Acute) Pulmonary embolism (Acute) Stroke (Acute) Social History Social History Substance History: No History of Abuse Second Hand Smoke Exposure: No Smoking Status: Never smoker Tobacco Type: Cigarettes How Often Do You Have a Drink Containing Alcohol: Never Recent Travel in [facility] within the Last 8 Weeks: No Recent Out of Country Travel within the Last 8 Weeks: No Immunization History Tetanus Immunization: <5 Years Medications and Allergies Allergies Allergy/AdvReac Type Severity Reaction Status Date / Time erythromycin base Allergy Intermediate Rash, Verified 10/17/18 11:52 Generalized Home Medications Medication Instructions Recorded Confirmed Type Robitussin Cough and Cold CF 10 ml PO DAILY PRN 10/17/18 10/17/18 History albuterol sulfate 2 puff INHALATION Q4-6H PRN 10/17/18 10/17/18 History amlodipine 5 mg PO DAILY 10/17/18 10/17/18 History amoxicillin-pot clavulanate 1 tab PO Q12H 10/17/18 10/17/18 History [Augmentin] atenolol 50 mg PO BID 10/17/18 10/17/18 History atorvastatin 20 mg PO QPM 10/17/18 10/17/18 History cyclobenzaprine 10 mg PO HS 10/17/18 10/17/18 History furosemide 20 mg PO DAILY 10/17/18 10/17/18 History glipizide [Glucotrol] 5 mg PO AC BREAKFAST 10/17/18 10/17/18 History glipizide [Glucotrol] 10 mg PO QPM 10/17/18 10/17/18 History hydrocodone-acetaminophen 1 tab PO TID PRN 10/17/18 10/17/18 History lisinopril 10 mg PO DAILY 10/17/18 10/17/18 History omeprazole 40 mg PO DAILY 10/17/18 10/17/18 History sertraline 50 mg PO DAILY 10/17/18 10/17/18 History tamsulosin 0.4 mg PO DAILY 10/17/18 10/17/18 History warfarin 5 mg PO DAILY 10/17/18 10/17/18 History zolpidem 10 mg PO HS 10/17/18 10/17/18 History Active Medications: Active Medications Acetaminophen (Tylenol) 650 mg PO Q4H PRN PRN Reason: Temp > 100.4 Al Hydroxide/Mg Hydroxide (Milk Of Magnesia Liq) 30 ml PO Q12H PRN PRN Reason: Mild Constipation Albuterol (Duoneb Neb (Yolette)) 1 ampul NEB Q4HR NEB [facility] Amlodipine Besylate (Norvasc) 5 mg PO DAILY [facility] Atenolol (Tenormin) 50 mg PO BID [facility] Atorvastatin Calcium (Lipitor) 20 mg PO QPM [facility] Bisacodyl (Dulcolax Supp) 10 mg RECTAL DAILY PRN PRN Reason: SEVERE CONSITIPATION Cyclobenzaprine HCl (Flexeril) 10 mg PO HS [facility] Furosemide (Lasix) 20 mg PO DAILY [facility] Glipizide (Glucotrol) 10 mg PO QPM [facility] Glipizide (Glucotrol) 5 mg PO AC BREAKFAST [facility] Guaifenesin/Dextromethorphan (Robitussin Dm Liq) 10 ml PO Q4H PRN PRN Reason: COUGH Lactulose (Lactulose Liq) 30 ml PO DAILY PRN PRN Reason: SEVERE CONSITIPATION Lisinopril (Prinivil) 10 mg PO DAILY [facility] Non-Formulary Medication (Omeprazole [Omeprazole]) 40 mg PO DAILY [facility] Non-Formulary Medication (Robitussin Cough And Cold Cf) 10 ml PO DAILY PRN PRN Reason: Cough Non-Formulary Medication (Hydrocodone-Acetaminophen [Hydrocodone-Acetaminophen] ) 1 tab PO TID PRN PRN Reason: Pain Ondansetron HCl (Zofran Inj) 4 mg IV.PUSH Q6H PRN PRN Reason: NAUSEA OR VOMITING Senna/Docusate Sodium (Dali-Colace) 1 tab PO BID [facility] Sennosides (Senokot) 17.2 mg PO Q12H PRN PRN Reason: Moderate Constipation Sertraline HCl (Zoloft) 50 mg PO DAILY [facility] Sodium Chloride (Ns Flush) 2 ml IV.FLUSH BID [facility] Sodium Chloride (Ns Flush) 2 ml IV.FLUSH PRN PRN PRN Reason: FLUSH AFTER USING IV ACCESS Tamsulosin HCl (Flomax) 0.4 mg PO DAILY [facility] Warfarin Sodium (Coumadin) 5 mg PO DAILY [facility] Zolpidem Tartrate (Ambien) 10 mg PO [facility] Physical Exam Vital signs: Last Vital Signs Temp 99.2 F 10/17/18 11:47 Pulse 80 10/17/18 14:29 Resp 20 10/17/18 14:29 BP 140/77 10/17/18 14:29 Pulse Ox 96 10/17/18 14:29 Intake & Output 10/15/18 10/16/18 10/17/18 10/18/18 06:59 06:59 06:59 06:59 Intake Total 480 / 480 Output Total 1400 / 1400 Balance -920 / -920 Weight 145.15 kg Narrative: GENERAL: middle aged man, obese, not in distress. HEENT:not pale,anicteric CARDIOVASCULAR: Regular rate and rhythm without murmurs, gallops, or rubs. RESPIRATORY: Clear to auscultation. Breath sounds equal bilaterally. No wheezes , rales, or rhonchi. GASTROINTESTINAL: Abdomen soft, non-tender, nondistended. Normal active bowel sounds MUSCULOSKELETAL: Extremities without clubbing, cyanosis, or edema. NEURO: Alert & Oriented x4 to person, place, time, situation. Moves all ext x4 Results Labs CBC & Chem 7: 10/18/18 08:00 10/17/18 12:00 Imaging Impressions Chest CTA 10/17/18 11:49 CONCLUSION: This study is negative for pulmonary embolism. Chest X-Ray 10/17/18 11:49 CONCLUSION: No acute cardiopulmonary abnormality is identified. Caprini VTE Risk Assessment Caprini VTE Risk Assessment: Moderate/High Risk (score >= 2) Caprini Risk Assessment Model: Point Value = 1 Point Value = 2 Point Value = 3 Point Value = 5 Age 41-60 Minor surgery BMI > 25 kg/m2 Swollen legs Varicose veins or History of unexplained or recurrent spontaneous Oral contraceptives or hormone replacement Sepsis (< 1 month) Serious lung disease, including pneumonia (< 1 month) Abnormal pulmonary function Acute myocardial infarction Congestive heart failure (< 1 month) History of inflammatory bowel disease Medical patient at bed rest Age 61-74 Arthroscopic surgery Major open surgery (> 45 min) Laparoscopic surgery (> 45 min) Malignancy Confined to bed (> 72 hours) Immobilizing plaster cast Central venous access Age >= 75 History of VTE Family history of VTE Factor V Leiden Prothrombin [id number] Lupus anticoagulant Anticardiolipin antibodies Elevated serum homocysteine Heparin-induced thrombocytopenia Other congenital or acquired thrombophilia Stroke (< 1 month) Elective arthroplasty Hip, pelvis, or leg fracture Acute spinal cord injury (< 1 month) Prophylaxis Regimen: Total Risk Factor Score Risk Level Prophylaxis Regimen 0-1 Low Early ambulation 2 Moderate Order ONE of the following: *Sequential Compression Device (SCD) *Heparin 5000 units SQ BID 3-4 Higher Order ONE of the following medications: *Heparin 5000 units SQ TID *Enoxaparin/Lovenox 40 mg SQ daily (WT < 150 kg, CrCl > 30 mL/min) *Enoxaparin/Lovenox 30 mg SQ daily (WT < 150 kg, CrCl > 10-29 mL/min) *Enoxaparin/Lovenox 30 mg SQ BID (WT < 150 kg, CrCl > 30 mL/min) AND/OR *Sequential Compression Device (SCD) 5 or more Highest Order ONE of the following medications: *Heparin 5000 units SQ TID (Preferred with Epidurals) *Enoxaparin/Lovenox 40 mg SQ daily (WT < 150 kg, CrCl > 30 mL/min) *Enoxaparin/Lovenox 30 mg SQ daily (WT < 150 kg, CrCl > 10-29 mL/min) *Enoxaparin/Lovenox 30 mg SQ BID (WT < 150 kg, CrCl > 30 mL/min) AND *Sequential Compression Device (SCD) Assessment and Plan Plan 63 yo m with h/o COPD,DVT, previous strokes,with residual left sided weakness who presented with c/o cough and shortness of breath. Cough/Shortness of breath- has leucocytosis, imaging without evidence of infiltrates. Treat as acute bronchitis, keep on duonebs. given sick exposure, check influenza panel,respiratory viral culture, bacterial culture. follow up blood cultures. Continue home medication for stable chronic medical conditions. H&P: Quality VTE Deep Vein Thrombosis/Pulmonary Embolism Present on Admission: No
[2018-10-17] MEDS: Atenolol 50 MG Tablet PO SCH (20:51)
[2018-10-17] MEDS: Senna/Docusate Sodium 8.6/50 MG Tablet PO SCH (20:52)
[2018-10-17] MEDS ORDERED: ALPRAZolam 0.5 MG Tablet PO ONE (22:57)
[2018-10-18] MEDS ORDERED: glipiZIDE 5 MG Tablet PO SCH ×2 (07:00→18:00)
[2018-10-18] MEDS: Atenolol 50 MG Tablet PO SCH ×2 (07:59→20:59)
[2018-10-18] MEDS: Senna/Docusate Sodium 8.6/50 MG Tablet PO SCH ×2 (08:01→20:58)
[2018-10-18 08:50] LABS: Baso % (Auto) 0.2 % (0.0-2.0); Eos # (Auto) 0.1 th/mm3 (0.0-0.4); Eos % (Auto) 1.2 % (0.0-4.0); Hematocrit 46.8 % (39.0-51.0); Hemoglobin 15.2 gm/dL (13.0-17.0); Lymph # (Auto) 1.2 th/mm3 (1.0-4.8); Lymph % (Auto) 16.1 % (9.0-44.0); Mean Corpuscular HGB Conc 32.6 % (32.0-36.0); Mean Corpuscular Hemoglobin 28.5 pg (27.0-34.0); Mean Corpuscular Volume 87.6 fL (80.0-100.0); Mean Platelet Volume 9.6 fL (7.0-11.0); Mono # (Auto) 0.9 th/mm3 (0.0-0.9); Mono % (Auto) 12.7 % (0.0-8.0); Neut # (Auto) 5.2 th/mm3 (1.8-7.7); Neut % (Auto) 69.8 % (16.0-70.0); Platelet Count 223 th/mm3 (150-450); Red Blood Count 5.35 mil/mm3 (4.50-5.90); Red Cell Distribution Width 14.8 % (11.6-17.2); White Blood Count 7.4 th/mm3 (4.0-11.0)
[2018-10-18] MEDS ORDERED: Sertraline 50 MG Tablet PO SCH (09:00)
[2018-10-18] MEDS ORDERED: Furosemide 20 MG Tablet PO SCH (09:00)
[2018-10-18] MEDS ORDERED: amLODIPine 5 MG Tablet PO SCH (09:00)
[2018-10-18] MEDS ORDERED: Lisinopril 10 MG Tablet PO SCH (09:00)
[2018-10-18] MEDS ORDERED: levoFLOXacin 500 MG Tablet PO SCH (09:30)
--- NOTE | 2018-10-18 09:30 | P.PNIM ---
Subjective Interval history: reports improvement in cough and SOB. Physical Exam Vital signs: Last Vital Signs Temp 97.1 F L 10/18/18 00:00 Pulse 74 10/18/18 09:02 Resp 18 10/18/18 09:02 BP 109/58 L 10/18/18 01:00 Pulse Ox 92 L 10/18/18 09:02 Intake & Output 10/16/18 10/17/18 10/18/18 10/19/18 06:59 06:59 06:59 06:59 Intake Total 960 / 960 Output Total 2250 / 2250 Balance -1290 / -1290 Weight 145.3 kg Narrative: GENERAL: middle aged man, obese, not in distress. HEENT:not pale,anicteric CARDIOVASCULAR: Regular rate and rhythm without murmurs, gallops, or rubs. RESPIRATORY: Clear to auscultation. Breath sounds equal bilaterally. No wheezes , rales, or rhonchi. GASTROINTESTINAL: Abdomen soft, non-tender, nondistended. Normal active bowel sounds MUSCULOSKELETAL: Extremities without clubbing, cyanosis, or edema. NEURO: Alert & Oriented x4 to person, place, time, situation. Moves all ext x4 Results Labs CBC & Chem 7: 10/18/18 08:00 10/17/18 12:00 Labs: Microbiology 10/18/18 00:15 Nasal Wash Influenza Types A,B Antigen - Final Negative for FLU A and B antigen Infection due to influenza A or B cannot be ruled out since the antigen present in the sample may be below the detection limit of the test. Imaging Imaging: Impressions Chest CTA 10/17/18 11:49 CONCLUSION: This study is negative for pulmonary embolism. Chest X-Ray 10/17/18 11:49 CONCLUSION: No acute cardiopulmonary abnormality is identified. Assessment and Plan Plan 63 yo m with h/o COPD,DVT, previous strokes,with residual left sided weakness who presented with c/o cough and shortness of breath. Cough/Shortness of breath- imaging without evidence of infiltrates. Leucocytosis trended down from 17 to 7. patient had prescription for Albuterol inhaler but has been unable to fill it due to cost. Treat as acute bronchitis, duonebs. continue Levofloxacin once daily influenza panel-negative, blood culture pending. Continue home medication for stable chronic medical conditions. plan to discharge if blood culture negative. Progress Note: Quality VTE Deep Vein Thrombosis/Pulmonary Embolism Present on Admission: No
[2018-10-18] MEDS ORDERED: levoFLOXacin 750 MG Tablet PO SCH (15:00)
[2018-10-18 21:02] VITALS: BP 120/79; PULSE 83; RESP 21; TEMP 98.6; O2SAT 94
== END 2018-10-18 21:20 ==
LOC: PHED 11:44 → PHEDA 11:44 → PH3 17:42
PROVIDERS: ADMIT Hospitalist; ATTEND Hospitalist
DX: R05 Cough; E78.5 Hyperlipidemia, unspecified; E11.9 Type 2 diabetes mellitus without complications; R06.00 Dyspnea, unspecified; I10 Essential (primary) hypertension; Z86.711 Personal history of pulmonary embolism; J44.1 Chronic obstructive pulmonary disease with (acute) exacerbation; J20.9 Acute bronchitis, unspecified; Z79.84 Long term (current) use of oral hypoglycemic drugs; Z79.01 Long term (current) use of anticoagulants; E66.9 Obesity, unspecified; Z86.718 Personal history of other venous thrombosis and embolism; I69.354 Hemiplegia and hemiparesis following cerebral infarction affecting left non-dominant side